=== PATIENT | male | born 1980 | race Caucasian/White ===

== ENCOUNTER 2016-10-03 22:08 | Inpatient (IN) | payer OTHER ==
[~2016-10-03] VITALS: Ht 177.8 cm; Wt 94.3 kg
[2016-10-03 22:40] LABS: MEAN CORPUSCULAR HEMOGLOBIN 31.2 pg (27.0-33.0); RED CELL DISTRIBUTION WIDTH 11.7 % (11.5-14.5); WHITE BLOOD COUNT 7.8 K/mm3 (4.0-10.0)
[2016-10-03 22:41] LABS: MEAN CORPUSCULAR HGB CONC 36.7 g/dl (32.0-36.5)
[2016-10-03 23:13] LABS: AMPHETAMINES LEVEL URINE NEGATIVE (NEGATIVE); BENZODIAZEPINES URINE NEGATIVE (NEGATIVE); COCAINE METABOLITE URINE NEGATIVE (NEGATIVE); CONTROL LINE INT CTR LINE PRESENT; METHADONE URINE NEGATIVE (NEGATIVE); OPIATES URINE NEGATIVE (NEGATIVE); TRICYCLIC ANTIDEPRESS URINE NEGATIVE (NEGATIVE)
[2016-10-03 23:17] LABS: ALBUMIN 4.1 GM/DL (3.2-5.2); ALBUMIN/GLOBULIN RATIO 1.21 (1.00-1.93); ALKALINE PHOSPHATASE 50 U/L (45-117); ALT/SGPT 38 U/L (12-78); ANION GAP 11 MEQ/L (8-16); AST/SGOT 17 U/L (15-37); BILIRUBIN,DIRECT 0.1 MG/DL (0.0-0.2); BILIRUBIN,TOTAL 0.4 MG/DL (0.2-1.0); BLOOD UREA NITROGEN 14 MG/DL (7-18); CALCIUM LEVEL 9.2 MG/DL (8.5-10.1); CARBON DIOXIDE LEVEL 24 MEQ/L (21-32); CHLORIDE LEVEL 107 MEQ/L (98-107); CREATININE FOR GFR 1.02 MG/DL (0.70-1.30); GLOMERULAR FILTRATION RATE > 60.0 (>60); GLUCOSE, FASTING 106 MG/DL (70-105); POTASSIUM SERUM 3.2 MEQ/L (3.5-5.1); SODIUM LEVEL 142 MEQ/L (136-145); TOTAL PROTEIN 7.5 GM/DL (6.4-8.2)
[2016-10-04] MEDS: LISINOPRIL 20 MG TAB PO SCH (09:00)
[2016-10-04] MEDS ORDERED: ZOMI5TAB2 PO (14:07)
[2016-10-04] MEDS ORDERED: LORA-376 PO (14:07)
[2016-10-04] MEDS ORDERED: BUPR150T3 PO (14:07)
[2016-10-04] MEDS ORDERED: GABA300C3 PO (14:07)
[2016-10-04] MEDS ORDERED: LISI-538 PO ×2 (14:07→17:30)
[2016-10-04] MEDS ORDERED: OXCA150T PO ×2 (14:07→17:33)
[2016-10-04] MEDS ORDERED: PRAZ5CAP PO (14:07)
--- NOTE | 2016-10-04 14:41 | EDDOCDS ---
Nurse's Notes [facility] Name: Ruel Estrada Age: 36 yrs Sex: Male : 1980 Arrival Date: 10/03/2016 Time: 22:08 Bed OBSERVATION Private MD: Isaac Delaney [facility] Diagnosis: Major depressive disorder, recurrent, moderate Presentation: 10/03 22:11 Presenting complaint: EMS states: pt took 4x 0.5mg of lorazepam, drank 2x 40 oz beers. [facility] pt told his he did this "to a peaceful ", therefore called EMS. pt denies SI at this time. Mental Health Triage Level: Level 2: The patient displays active suicidal ideations. Adult Sepsis Screening: The patient does not have new or worsening altered mentation. Patient's respiratory rate is less than 22. Systolic blood pressure is greater than 100. Patient has a qSOFA score of 0- Negative Sepsis Screen. Suicide/Homicide risk assessment- Patient denies SI and HI but presents with another emotional, behavioral or other mental health complaint. 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 Transition of care: patient was not received from another setting of care. 22:11 Acuity: VU Level 3 [facility] 22:11 Method Of Arrival: Ambulance [facility] Triage Assessment: 22:19 General: Appears in no apparent distress, comfortable, Behavior is cooperative. Pain: mlc Location: low back area Pain currently is 6 out of 10 on a pain scale. Pt Declines HIV testing. The patient is triaged at the bedside. See Assessment in Nurses Notes section of ED record. Neurological: Level of Consciousness is awake, obeys commands, Oriented to person, place. Respiratory: Airway is patent Respiratory effort is even, unlabored, Respiratory pattern is regular. Derm: Skin is pink, warm & dry. Historical: - Allergies: No known drug Allergies; - Home Meds: 1. lorazepam 0.5 mg Oral tab 1 tab 3 times per day pt took 2 at 18:30 and 2 at 19:30 2. prazosin 5 mg Oral cap 1 cap nightly 3. oxcarbazepine 150 mg oral tab 1 tab in moring and 1 tab at night 4. bupropion HCl 150 mg Oral TbER 1 tab once daily 5. trazodone 50 mg Oral tab nightly 6. lisinopril 20 mg Oral tab 1 tab once daily hasn't taken in a few weeks - PMHx: Hypertension; PTSD; Anxiety; Depression; - PSHx: none; - Social history: Smoking status: Patient states was never smoker of tobacco. Patient uses alcohol weekly. pt drank 2 40 oz beers tonight. No barriers to communication noted, The patient speaks fluent [place]. - Family history: Not pertinent. - : The pt / caregiver states he / she is not on anticoagulants. Home medication list is obtained from the patient. - Exposure Risk Screening:: None identified. Screenin:21 Screening information is obtained from the patient. Fall risk: At risk due to apparent mlc chemical impairment. Assistance ADL's: requires no assistance with activities of daily living. Abuse/DV Screen: The patient / caregiver reports he/she is: not in a situation that causes fear, pain or injury. Nutritional screening: No deficits noted. Advance Directives: Currently, there is no health care proxy. home support is adequate. Assessment: 22:32 General: Appears in no apparent distress, comfortable, Behavior is cooperative. Pain: mlc Denies pain. Neurological: Level of Consciousness is awake, obeys commands, Oriented to person, place. Neurological: Moves all extremities. Speech is normal, Facial symmetry appears normal, Pupils are PERRLA. Cardiovascular: Capillary refill < 3 seconds Heart tones S1 S2 present Rhythm is sinus tachycardia No ectopy. Respiratory: Airway is patent Respiratory effort is even, unlabored, Respiratory pattern is regular, Breath sounds are clear bilaterally. GI: Abdomen is non- distended Bowel sounds present X 4 quads. Abd is soft X 4 quads. Derm: Skin is normal. 23:08 Reassessment: Patient appears in no apparent distress at this time. pt resting with mlc eyes closed. . 23:35 Reassessment: Patient appears in no apparent distress at this time. pt resting mlc comfortably with eyes closed, pt awakens easily. pt moved to [facility] via wheelchair. . 10/04 00:48 General: Appears in no apparent distress, comfortable, to be sleeping. Respiratory: mlc Airway is patent Respiratory effort is even, unlabored, Respiratory pattern is regular. 01:53 Reassessment: Patient appears in no apparent distress at this time. resting quietly on rw1 stretcher, safety maintained will monitor.. 02:50 Reassessment: Patient appears in no apparent distress at this time. resting quietly on rw1 stretcher, safety maintained will monitor.. 03:52 General: Appears in no apparent distress, comfortable, Behavior is quiet, resting on rw1 stretcher with eyes closed, safety maintained. Respiratory: Airway is patent Respiratory effort is even, unlabored. Derm: Skin is pink, warm & dry. normal. 04:51 General: Appears in no apparent distress, comfortable, to be sleeping. Respiratory: mlc Airway is patent Respiratory effort is even, unlabored, Respiratory pattern is regular. 05:43 Reassessment: Patient appears in no apparent distress at this time. resting on rw1 stretcher with eyes closed, safety maintained will monitor. 06:21 General: Appears in no apparent distress, comfortable, Behavior is appropriate for age, rw1 cooperative, quiet. Pain: Denies pain. Neurological: Level of Consciousness is awake, obeys commands, Oriented to person, place, time. Respiratory: Airway is patent Respiratory effort is even, unlabored. Derm: Skin is pink, warm & dry. normal. 07:07 General: Appears in no apparent distress, Behavior is appropriate for age, cooperative. ml6 Pain: Denies pain. Neurological: No deficits noted. Level of Consciousness is awake, alert. Cardiovascular: No deficits noted. Capillary refill < 3 seconds is brisk in bilateral fingers toes. Respiratory: No deficits noted. Airway is patent Respiratory effort is even, unlabored, Respiratory pattern is regular, symmetrical. GI: No deficits noted. 07:07 General: no report received first contact with patient. ml6 08:00 Reassessment: Patient appears in no apparent distress at this time. Patient denies pain ml6 at this time. Patient states feeling better. Patient states symptoms have improved. patient sleeping intermittently after eating breakfast. 09:01 Reassessment: Patient appears in no apparent distress at this time. Patient denies pain ml6 at this time. Patient states feeling better. Patient states symptoms have improved. patient sleeping soundly resp unlabored VSS. 10:00 General: Appears in no apparent distress, comfortable, Behavior is appropriate for age, ml6 cooperative. Pain: Denies pain. Cardiovascular: No deficits noted. Respiratory: No deficits noted. 11:00 Reassessment: Patient appears in no apparent distress at this time. Patient denies pain ml6 at this time. Patient states feeling better. Patient states symptoms have improved. patient sleeping soundly resp unlabored. 12:27 General: Appears in no apparent distress, Behavior is appropriate for age, cooperative, rs3 resting on stretcher. not happy about being here and getting admitted to [facility]. cooperative with care. vital signs stable. . 13:26 General: Appears in no apparent distress, Behavior is cooperative, eating lunch. denies rs3 of pain/distress. cooperative with care. 14:35 Reassessment: Patient appears in no apparent distress at this time. Patient denies pain rs3 at this time. Patient states feeling better. Patient states symptoms have improved. Mental Health Eval: 03:54 Narrative: Spoke with PT's who states PT told her yesterday that he has stopped jfb all of his medications about 10 days ago because he is sick of taking them. states she had noticed PT becoming short tempered and blowing up over things that normally would not bother him. Yesterday PT was supposed to have a trauma director board done for their son's wrSEJENTling match but did not complete it and was complaining and he became very angry and was yelling. decided to take their three children to the wrestling match without PT and when they returned he appeared fine. After went to bed PT came into their room and was slurring his words so badly that had difficulty understanding him. He told her "I took all my pills" grabbed her phone and asked him to repeat himself telling him she would call for help and he stated "Just let me . I want to peacefully". does not feel unsafe with PT but she is concerned for his well being. 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 [facility] Behavioral Health: The patient is not an established patient of [facility] Behavioral Health. Referral Information: Evaluation referral is generated by called EMS for assistance. The patient was referred for evaluation because PT was making suicidal statements and was under the influence. 06:02 Subjective: The patients chief complaint is PT states that yesterday he and his an jfb argument with his and then he left the house to calm. When he came back gave him the silent treatment and then she left with the children. While she was gone he admitted to drinking but denied drug use. When returned PT states things were fine and he went to bed and the next thing he remembers is the police surrounding him. PT states he does not remember making statements he wanted to but he also did not deny he may have said it. PT is currently in the [facility] and is finishing his MEB which he says he is happy about. PT has minimized events and his mood swings based on 's report but admits that he discontinued his meds about 10 days ago and states he felt better but his stated she and the kids noticed a negative difference. 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 . Delusions are denied. Patient's mood is depressed, Hallucinations are denied. Mental Health history: anxiety, depression, post-traumatic stress disorder, sleep disturbance, suicide gesture by OD while drinking PT states he has no memory of event Mental Health Admissions: None. Current Outpatient Mental Health Services: Psychiatrist / Agency: Dr. Crane via [facility]. Therapist / Agency: Waldo Prather via [facility]. Current living environment is The patient currently lives with his / her significant other, and their 3 children. Patient presents to Emergency Department with the following symptoms within the past 2 weeks: alcohol abuse, depressed mood, poor impulse control, posttraumatic stress related to experiences, sleep disturbance - erratic suicidal ideation with. Substance abuse: PT states that he rarely drinks but did yesterday due to arguing with his . PT denies any drug abuse or that he smokes cigarettes . Mental status exam: Patients appearance is appropriate, Patient's behavior is cooperative, Speech is normal. Affect is flat. Mood is appropriate. Hallucinations are denied. Appetite is erratic Memory is good. Energy level is normal. Content of thought is depressive. pessimistic outlook for his future Thought process is intact. Cognitive level is oriented to person, place, time and situation Patient's insight is fair. Judgement is fair. Rapport with interviewer is good. Suicidal Ideation is denied. Homicidal ideation is denied. Disposition: Medically cleared for disposition by Stoney Marquis DO Psychiatric Consult is performed by phone with Dr Omid Leon MD. [facility] Admission Criteria: The patient is experiencing suicidal ideation. The patient requires continuous observation and/or control to protect self, others or property. The patient's care requires a multi-modal treatment plan under close supervision and coordination due to the complexity and severity of the patient's symptoms. The patient requires administration and monitoring of psychoactive medications by skilled medical providers due to the side effects of the psychoactive medications or significant dosage adjustments. [place] Safe Act: [place] Safe Act is applicable to this patient. The patient poses a risk to self or other and the Nursing Corporate Staff Accountant has been notified. He/She will enter the patient's data. DSM-V Differential Diagnosis: Posttraumatic Stress Disorder (F 43.10). Insurance Pre-Certification: Not Required, . 13:43 Legal Status: Patient's legal status will be Emergency admission: . DSM-V rb Differential Diagnosis: Unspecified Depressive Disorder (F32.9). Awaiting: transfer to [facility]. 14:01 Narrative: Pt legals placed with belongings. rb Vital Signs: 10/03 22:25 BP 157 / 86 (auto/); sep 29: Pulse 127 MON; Pulse Ox 93% ; sep 22:36 BP 140 / 78; Pulse 133; Resp 20; Temp 92(O); Pulse Ox 92% on R/A; Weight 90.72 kg (R); jmv Height 5 ft. 10 in. (177.80 cm) (R); Pain 6/10; 22:45 Pulse 123 MON; Pulse Ox 92% ; mlc 22:45 BP 109 / 50 (auto/); mlc 23:00 BP 116 / 56 (auto/); [facility] 23:01 Pulse 122 MON; Pulse Ox 92% ; [facility] 23:11 Temp 98.0(TE); [facility] 23:15 BP 142 / 75 (auto/); sep 23:16 Pulse 119 MON; Pulse Ox 91% ; sep 23:30 BP 121 / 61 (auto/); Resp 16; sep 23:31 Pulse 111 MON; Pulse Ox 96% on R/A; sep 30:32 Pulse 110 MON; mlc 10/04 06:21 BP 135 / 84; Pulse 95; Resp 18; Temp 96.9(TE); Pulse Ox 96% on R/A; Pain 0/10; rw1 12:29 BP 141 / 95; Pulse 108; Resp 18; Temp 98(O); Pulse Ox 99% on R/A; Pain 0/10; rs3 14:35 BP 140 / 92; Pulse 100; Resp 18; Temp 98(T); Pulse Ox 99% on R/A; Pain 0/10; rs3 10/03 22:36 Body Mass Index 28.70 (90.72 kg, 177.80 cm) [facility] Vitals: 10/03 22:19 Log In Time N/A - ambulance arrival. [facility] ED Course: 22:09 Patient visited by Jerrica Hinton, Teletypist. ml3 22:09 Patient moved to [facility] ml3 22:10 Isaac Delaney [facility] is Private Physician. ml3 22:10 Amy Quigley,RN is Primary Nurse. ml3 22:10 Patient moved to ml3 22:12 [facility] le 22:14 Triage Initiated mlc 22:22 The patient / caregiver is instructed regarding the plan of care and ED course. mlc 22:24 Patient visited by Danika Rothman FNP. le 22:24 Patient visited by Danika Rothman FNP. le 22:31 Acetaminophen Level Sent. mlc 22:31 Basic Metabolic Profile Sent. mlc 22:31 Complete Blood Count Sent. mlc 22:31 Ethyl Alcohol (ethanol) Sent. mlc 22:31 Liver Profile Sent. mlc 22:32 Salicylate Level Sent. mlc 22:32 Thyroid Stimulating Hormone Sent. mlc 22:32 Maintain field IV. Dressing intact. Good blood return noted. Site clean & dry. Gauge & mlc site: 18g left AC. 22:34 Patient visited by Amy Quigley RN. mlc 22:36 Drug Eval Toxicology ED Only Sent. [facility] 22:38 Patient visited by Humphrey Drummond PCA. [facility] 22:38 Pt greeted and oriented to ED. Patient advised of names of staff involved in care, [facility] location of call zayas, wait times and NPO status. Patient has correct armband on for positive identification. Placed in gown. Placed in psych safe attire. Bed in low position. Call light in reach. Side rails up X2. housekeeping supervisor on. Pulse ox on. NIBP on. 23:09 Patient visited by Amy Quigley,ELVIRA. mlc 23:37 Patient moved to [place] [id number] 23:39 [facility] Payment Agreement was scanned into [employer] and attached to record. ks16 23:44 Patient visited by Armen Simpson. tr 23:47 Patient name changed from Ruel\\S\\\\S\\Risinger\\S\\ to Ruel\\S\\ \\S\\Risinger. EDMS 23:57 Patient visited by Armen Simpson. tr 10/04 00:03 Patient visited by Amy Quigley RN. mlc 00:15 Patient moved to OBSERVATION cs11 00:34 Patient visited by Armen Simpson. tr 00:48 Patient visited by Armen Simpson. tr 00:48 Patient visited by Amy Quigley RN. mlc 01:00 Patient visited by Armen Simpson. tr 01:17 Patient visited by Armen Simpson. tr 01:30 Patient visited by Armen Simpson. tr 01:54 Patient visited by Kvng Noriega LPN. rw1 01:58 Patient visited by SimpsonArmen. tr 02:16 Patient visited by SimpsonArmen. tr 02:42 Patient visited by SimpsonArmen. tr 02:56 Patient visited by SimpsonArmen. tr 03:18 Patient visited by SimpsonArmen. tr 03:49 Patient visited by SimpsonArmen. tr 04:01 Patient visited by SimpsonArmen. tr 04:14 Patient visited by SimpsonArmen. tr 04:28 Patient visited by SimpsonArmen. tr 04:42 Patient visited by SimpsonArmen. tr 04:51 Patient visited by Amy Quigley RN. mlc 05:29 Patient visited by SimpsonArmen. tr 05:49 Patient visited by SimpsonArmen. tr 06:00 Patient visited by SimpsonArmen. tr 06:13 Patient visited by SimpsonArmen. tr 06:30 Patient visited by SimpsonArmen. tr 06:43 Patient visited by SimpsonArmen. tr 06:58 Sharri Gilliland MD is Attending Physician. sd1 07:18 Primary Nurse role handed off by Amy Quigley RN kr3 07:20 Patient visited by Neeraj Dudley Security Aide. pjf 07:34 Patient visited by Neeraj Dudley Security Aidabiodun. pjf 07:59 Patient visited by Neeraj Dudley Security Aide. pjf 08:15 Psych Safety Check: Location: Psych Room. Visual Assessment: Cooperative. pjf 08:23 Patient visited by Neeraj Dudley Security Aide. pjf 08:31 Patient visited by Ayesha Nava SYSTEM DEVELOPER ASSOCIATE MANAGER. tmm1 08:45 Psych Safety Check: Location: Psych Room. Visual Assessment: Cooperative. pjf 09:00 Psych Safety Check: Location: Psych Room. Visual Assessment: Cooperative. pjf 09:12 Patient visited by Ayesha Nava SYSTEM DEVELOPER ASSOCIATE MANAGER. tmm1 09:43 Patient visited by Ayesha Nava SYSTEM DEVELOPER ASSOCIATE MANAGER. tmm1 10:06 Patient visited by Ayesha Nava SYSTEM DEVELOPER ASSOCIATE MANAGER. tmm1 10:13 Psych Safety Check: Location: Psych Room. Visual Assessment: Agitated, pt informed that tmm1 he is an admission, pt response agitation social work is aware, Isaac Delaney Liaison [facility] and [facility] Surya informed and present. 10:15 Patient visited by Ayesha Nava PCA. tmm1 10:30 Psych Safety Check: Location: Psych Room. Visual Assessment: Cooperative. pjf 10:45 Psych Safety Check: Location: Psych Room. Visual Assessment: Cooperative. pjf 11:00 Psych Safety Check: Location: Psych Room. Visual Assessment: Cooperative. pjf 11:28 Patient visited by Ayesha Nava PCA. tmm1 11:44 Patient visited by Ayesha Nava PCA. tmm1 11:58 Patient visited by Neeraj Dudley Security Aide. pjf 12:15 Patient visited by Neeraj Dudley Security Aide. pjf 12:27 Patient visited by Giovanna Parker RN. rs3 12:30 Patient visited by Giovanna Parker RN. rs3 12:31 Patient visited by Neeraj Dudley Security Aide. pjf 12:48 Patient visited by Neeraj Dudley Security Aide. pjf 13:11 PCR was scanned into [employer] and attached to record. gb 13:24 Patient visited by Ayesha Nava PCA. tmm1 13:28 Omid Leon MD is Hospitalizing Provider. sd1 13:54 Patient visited by Ayesha Nava PCA. tmm1 13:58 [facility] Legal paperwork was scanned into [employer] and attached to record. cs 14:34 No IV's were initiated during this patient's visit. No procedures done that require rs3 assistance. Attachments: 13:58 [facility] Legal paperwork cs Order Results: Lab Order: Acetaminophen Level; SPEC'M 10/03/16 22:29 Test: ACETAMINOPHEN LEVEL; Value: < 2.0; Range: 10.0-30.0; Abnormal: Below low normal; Units: UG/ML; Status: F Lab Order: Basic Metabolic Profile; SPEC'M 10/03/16 22:29 Test: GLUCOSE, FASTING; Value: 106; Range: 70-105; Abnormal: Above high normal; Units: MG/DL; Status: F Test: BLOOD UREA NITROGEN; Value: 14; Range: 7-18; Units: MG/DL; Status: F Test: CREATININE FOR GFR; Value: 1.02; Range: 0.70-1.30; Units: MG/DL; Status: F Test: GLOMERULAR FILTRATION RATE; Value: > 60.0; Range: >60; Status: F Test: SODIUM LEVEL; Value: 142; Range: 136-145; Units: MEQ/L; Status: F Test: POTASSIUM SERUM; Value: 3.2; Range: 3.5-5.1; Abnormal: Below low normal; Units: MEQ/L; Status: F Test: CHLORIDE LEVEL; Value: 107; Range: 98-107; Units: MEQ/L; Status: F Test: CARBON DIOXIDE LEVEL; Value: 24; Range: 21-32; Units: MEQ/L; Status: F Test: ANION GAP; Value: 11; Range: 8-16; Units: MEQ/L; Status: F Test: CALCIUM LEVEL; Value: 9.2; Range: 8.5-10.1; Units: MG/DL; Status: F Test Note: ; Units are mL/min/1.73 m2 Chronic Kidney Disease Staging per NKF: Stage I & II GFR >=60 Normal to Mildly Decreased Stage III GFR 30-59 Moderately Decreased Stage IV GFR 15-29 Severely Decreased Stage V GFR <15 Very Little GFR Left ESRD GFR <15 on MAGNETO ELECTRICIAN Lab Order: Complete Blood Count; SPEC'M 10/03/16 22:29 Test: WHITE BLOOD COUNT; Value: 7.8; Range: 4.0-10.0; Units: K/mm3; Status: F Test: RED BLOOD COUNT; Value: 5.15; Range: 4.30-6.10; Units: M/mm3; Status: F Test: HEMOGLOBIN; Value: 16.1; Range: 14.0-18.0; Units: g/dl; Status: F Test: HEMATOCRIT; Value: 43.8; Range: 42.0-52.0; Units: %; Status: F Test: MEAN CORPUSCULAR VOLUME; Value: 85.0; Range: 80.0-96.0; Units: fl; Status: F Test: MEAN CORPUSCULAR HEMOGLOBIN; Value: 31.2; Range: 27.0-33.0; Units: pg; Status: F Test: MEAN CORPUSCULAR HGB CONC; Value: 36.7; Range: 32.0-36.5; Abnormal: Above high normal; Units: g/dl; Status: F Test: RED CELL DISTRIBUTION WIDTH; Value: 11.7; Range: 11.5-14.5; Units: %; Status: F Test: PLATELET COUNT, AUTOMATED; Value: 206; Range: 150-450; Units: k/mm3; Status: F Lab Order: Drug Eval Toxicology ED Only; SPEC'M 10/03/16 22:32 Test: AMPHETAMINES LEVEL URINE; Value: NEGATIVE; Range: NEGATIVE; Status: F Test: BARBITURATES URINE; Value: NEGATIVE; Range: NEGATIVE; Status: F Test: BENZODIAZEPINES URINE; Value: NEGATIVE; Range: NEGATIVE; Status: F Test: CANNABINOIDS URINE; Value: NEGATIVE; Range: NEGATIVE; Status: F Test: COCAINE METABOLITE URINE; Value: NEGATIVE; Range: NEGATIVE; Status: F Test: METHADONE URINE; Value: NEGATIVE; Range: NEGATIVE; Status: F Test: OPIATES URINE; Value: NEGATIVE; Range: NEGATIVE; Status: F Test: TRICYCLIC ANTIDEPRESS URINE; Value: NEGATIVE; Range: NEGATIVE; Status: F Test Note: ; ALL PRESUMPTIVE POSITIVE FINDINGS ARE UNCONFIRMED NORMAL VALUES THRESHOLD IN NG/ML AMPHETAMINES 1000 METHAMPHETAMINES 1000 BARBITURATES 300 BENZODIAZEPINES 300 CANNABINOIDS (THC) 50 COCAINE METABOLITE 300 METHADONE 300 OPIATES 300 PHENCYCLIDINE 25 TRICYCLIC ANTIDEPRESSANTS 1000 RESULTS ARE FOR MEDICAL PURPOSES ONLY. ALL URINE SPECIMENS WILL BE SAVED FOR 3 DAYS. IF CONFIRMATION OF A PRESUMPTIVE POSTIVE SCREEN RESULT IS DESIRED, CALL CHEMISTRY ([phone]) AND REQUEST URINE TO BE SENT TO REFERENCE LAB. FOR A LIST OF CLOSELY RELATED COMPOUNDS PLEASE CALL THE LAB. Lab Order: Ethyl Alcohol (ethanol); SPEC'M 10/03/16 22:29 Test: ETHYL ALCOHOL (ETHANOL); Value: 0.098; Range: 0.000-0.010; Abnormal: Above high normal; Units: %; Status: F Lab Order: Liver Profile; SPEC'M 10/03/16 22:29 Test: AST/SGOT; Value: 17; Range: 15-37; Units: U/L; Status: F Test: ALT/SGPT; Value: 38; Range: 12-78; Units: U/L; Status: F Test: ALKALINE PHOSPHATASE; Value: 50; Range: 45-117; Units: U/L; Status: F Test: BILIRUBIN,TOTAL; Value: 0.4; Range: 0.2-1.0; Units: MG/DL; Status: F Test: BILIRUBIN,DIRECT; Value: 0.1; Range: 0.0-0.2; Units: MG/DL; Status: F Test: TOTAL PROTEIN; Value: 7.5; Range: 6.4-8.2; Units: GM/DL; Status: F Test: ALBUMIN; Value: 4.1; Range: 3.2-5.2; Units: GM/DL; Status: F Test: ALBUMIN/GLOBULIN RATIO; Value: 1.21; Range: 1.00-1.93; Status: F Lab Order: Salicylate Level; SPEC'M 10/03/16 22:29 Test: SALICYLATE LEVEL; Value: < 1.7; Range: 5.0-30.0; Abnormal: Below low normal; Units: MG/DL; Status: F Lab Order: Thyroid Stimulating Hormone; SPEC'M 10/03/16 22:29 Test: THYROID STIMULATING HORMONE; Value: 5.330; Range: 0.358-3.740; Abnormal: Above high normal; Units: uIU/ML; Status: F Outcome: 13:28 Decision to Hospitalize by Provider. sd1 14:35 Discharge Assessment: patient administered narcotics - no. The following High Risk rs3 Discharge criteria are identified: None. Admitted to Psych accompanied by tech, via wheelchair, with chart. Condition: stable. No special radiology studies were completed. Property :Personal belongings accompany Pt. 14:40 Patient left the ED. tmm1 Signatures: Dispatcher [employer] EDMS Sharri Gilliland MD MD sd1 Megan Coronado, RN RN catrina Palencia, yLric, PSA PSA rb Jericho Alanis, PSA PSA cs Florecita Appiah, Reg Reg gb Octavia, Neeraj, Security Aide [facility]ff[facility] Simpson, Armen tr Jamaal, [facility] CampusErmelinda, Teletypist Unit ml3 Thao Camacho,RN RN kr3 Kvng Noriega,BROOMCORN GRADER BROOMCORN GRADER rw1 Danika Rothman, DETECTIVE SUPERVISOR DETECTIVE SUPERVISOR dexter Parker,GiovannaRN RN rs3 Deondre Mckeon RN RN ml6 Lorrie Hogan, PSA PSA jfb Stoney Marquis, DO DO cs11 Elijah, Ayesha, SYSTEM DEVELOPER ASSOCIATE MANAGER SYSTEM DEVELOPER ASSOCIATE MANAGER tmm1 Amy Quigley,Devi Barrett RN, Reg Reg ks16 Humprhey Drummond, SYSTEM DEVELOPER ASSOCIATE MANAGER SYSTEM DEVELOPER ASSOCIATE MANAGER jmv MTDD
--- NOTE | 2016-10-04 14:41 | EDDOCDS ---
Physician Documentation [facility] Name: Ruel Estrada Age: 36 yrs Sex: Male : 1980 Arrival Date: 10/03/2016 Time: 22:08 Bed OBSERVATION Private MD: Isaac Delaney [facility] Disposition: 10/04/16 13:28 Hospitalization ordered by Omid Leon for Inpatient Admission. Preliminary diagnosis is Major depressive disorder, recurrent, moderate. - Bed requested for Admit. - Status is Inpatient Admission. tmm1 - Condition is Stable. - Problem is an acute exacerbation. - Symptoms are unchanged. Historical: - Allergies: No known drug Allergies; - Home Meds: 1. lorazepam 0.5 mg Oral tab 1 tab 3 times per day pt took 2 at 18:30 and 2 at 19:30 2. prazosin 5 mg Oral cap 1 cap nightly 3. oxcarbazepine 150 mg oral tab 1 tab in moring and 1 tab at night 4. bupropion HCl 150 mg Oral TbER 1 tab once daily 5. trazodone 50 mg Oral tab nightly 6. lisinopril 20 mg Oral tab 1 tab once daily hasn't taken in a few weeks - PMHx: Hypertension; PTSD; Anxiety; Depression; - PSHx: none; - Social history: Smoking status: Patient states was never smoker of tobacco. Patient uses alcohol weekly. pt drank 2 40 oz beers tonight. No barriers to communication noted, The patient speaks fluent Kenyan. - Family history: Not pertinent. - : The pt / caregiver states he / she is not on anticoagulants. Home medication list is obtained from the patient. - Exposure Risk Screening:: None identified. Vital Signs: 10/03 22:25 BP 157 / 86 (auto/); sep 29: Pulse 127 MON; Pulse Ox 93% ; sep 22:36 BP 140 / 78; Pulse 133; Resp 20; Temp 92(O); Pulse Ox 92% on R/A; Weight 90.72 kg / 200 jmv lbs (R); Height 5 ft. 10 in. (177.80 cm) (R); Pain 6/10; 22:45 Pulse 123 MON; Pulse Ox 92% ; mlc 22:45 BP 109 / 50 (auto/); mlc 23:00 BP 116 / 56 (auto/); mlc 23:01 Pulse 122 MON; Pulse Ox 92% ; mlc 23:11 Temp 98.0(TE); 23:15 BP 142 / 75 (auto/); sep 23:16 Pulse 119 MON; Pulse Ox 91% ; sep 23:30 BP 121 / 61 (auto/); Resp 16; sep 23:31 Pulse 111 MON; Pulse Ox 96% on R/A; sep 23:32 Pulse 110 MON; mlc 10/04 06:21 BP 135 / 84; Pulse 95; Resp 18; Temp 96.9(TE); Pulse Ox 96% on R/A; Pain 0/10; rw1 12:29 BP 141 / 95; Pulse 108; Resp 18; Temp 98(O); Pulse Ox 99% on R/A; Pain 0/10; rs3 14:35 BP 140 / 92; Pulse 100; Resp 18; Temp 98(T); Pulse Ox 99% on R/A; Pain 0/10; rs3 10/03 22:36 Body Mass Index 28.70 (90.72 kg, 177.80 cm) julissa MDM: 10/03 22:13 Consult PFS/PSA/Last Greaser ordered. le 22:13 Consult PFS/PSA/Last Greaser: Patient's case requires discussion with on-call le Psychiatrist ordered. 22:13 PSA/PFS to call Nursing Toy Assembler, to enter patient data on [place] Safe Act if patient le involuntarily admitted or transferred for SI or HI ordered. 22:13 Confirm accurate psychiatric medication list and times of last dosage ordered. le 22:13 Detain Pt Until Medically/PFS Cleared ordered. le 22:16 Acetaminophen Level Ordered. EDMS 22:16 Basic Metabolic Profile Ordered. EDMS 22:16 Complete Blood Count Ordered. EDMS 22:16 Drug Eval Toxicology ED Only Ordered. EDMS 22:16 Ethyl Alcohol (ethanol) Ordered. EDMS 22:16 Liver Profile Ordered. EDMS 22:16 Salicylate Level Ordered. EDMS 22:16 Thyroid Stimulating Hormone Ordered. EDMS 23:21 Drug Eval Toxicology ED Only Reviewed. le 23:21 Complete Blood Count Reviewed. le 23:25 Ethyl Alcohol (ethanol) Reviewed. le 23:26 Acetaminophen Level Reviewed. le 23:26 Basic Metabolic Profile Reviewed. le 23:26 Salicylate Level Reviewed. le 23:26 Thyroid Stimulating Hormone Reviewed. le 23:26 Liver Profile Reviewed. le 23:35 The patient has been medically cleared for psychiatric evaluation, admission and/or le transfer. 23:38 Financial registration complete. [email or web address] 23:39 [facility] Payment Agreement was scanned into [employer] and attached to record. [email or web address] 10/04 03:53 REGULAR DIET PLASTIC GIBBONS+DIET ordered. EDMS 05:55 Consult PFS/PSA/Last Greaser complete. jfb 05:55 Consult PFS/PSA/Last Greaser: Patient's case requires discussion with on-call jfb Psychiatrist complete. 05:55 PSA/PFS to call Nursing Toy Assembler, to enter patient data on [facility] Safe Act if patient jfb involuntarily admitted or transferred for SI or HI complete. 11:30 REGULAR DIET PLASTIC GIBBONS+DIET ordered. EDMS 13:11 PCR was scanned into [employer] and attached to record. gb 13:38 Admit to IM[facility]: ordered. EDMS 13:58 [facility] Legal paperwork was scanned into [employer] and attached to record. cs Signatures: Dispatcher [employer] EDMS Sharri Gilliland MD MD sd1 Jericho Alanis, PSA PSA cs Florecita Appiah, Reg Reg gb Danika Rothman, INTERNET MARKETING EXECUTIVE INTERNET MARKETING EXECUTIVE Lorrie Rosen, PSA PSA jfb Elijah, Ayesha, ELECTRICAL LINE WORKER ELECTRICAL LINE WORKER tmm1 Amy Quigley,RN RN Devi Gee, Reg Reg [email or web address] The chart was reviewed and I authenticate all verbal orders and agree with the evaluation and treatment provided.Attachments: 10/03 23:39 [facility] Payment Agreement [email or web address] MTDD
[2016-10-04] MEDS ORDERED: MOM 30ML SUSPENSION UDC PO PRN (17:00)
[2016-10-04] MEDS ORDERED: MAALOX 30 ML SUSP *UDC PO PRN (17:00)
[2016-10-04] MEDS ORDERED: WELLTAB38 PO (17:30)
[2016-10-04] MEDS: traZODone 100 MG TAB PO PRN (20:07)
[2016-10-04] MEDS: buPROPion **XL** TABLET 150MG (WELLBUTRIN XL) PO SCH (20:07)
[2016-10-04] MEDS: LORazepam 0.5 MG TAB PO SCH (20:07)
[2016-10-04] MEDS: PRAZOSIN 1 MG CAP PO SCH (20:07)
[2016-10-04] MEDS: OXcarbazepine 150 MG TAB PO SCH (20:07)
[2016-10-04 20:18] VITALS: BP 145/95
[2016-10-05 06:28] VITALS: BP 139/65
[2016-10-05] MEDS: OXcarbazepine 150 MG TAB PO SCH ×2 (09:54→20:19)
[2016-10-05] MEDS: LISINOPRIL 20 MG TAB PO SCH (09:54)
[2016-10-05] MEDS: LORazepam 0.5 MG TAB PO SCH ×2 (09:54→20:19)
[2016-10-05] MEDS: buPROPion **XL** TABLET 150MG (WELLBUTRIN XL) PO SCH (09:54)
[2016-10-05 11:27] VITALS: BP 132/90
[2016-10-05 18:04] VITALS: BP 120/72
[2016-10-05] MEDS: traZODone 100 MG TAB PO PRN (20:19)
[2016-10-05] MEDS: PRAZOSIN 1 MG CAP PO SCH (20:20)
[2016-10-06 06:11] VITALS: BP 111/55
[2016-10-06] MEDS: LISINOPRIL 20 MG TAB PO SCH (08:34)
[2016-10-06] MEDS: OXcarbazepine 150 MG TAB PO SCH (08:34)
[2016-10-06] MEDS: buPROPion **XL** TABLET 150MG (WELLBUTRIN XL) PO SCH (08:34)
[2016-10-06] MEDS: LORazepam 0.5 MG TAB PO SCH ×2 (08:34→20:06)
--- NOTE | 2016-10-06 15:41 | EDDOCDS ---
Nurse's Notes [facility] Name: Ruel Estrada Age: 36 yrs Sex: Male : 1980 Arrival Date: 10/03/2016 Time: 22:08 Bed OBSERVATION Private MD: Isaac Delaney [facility] Diagnosis: Major depressive disorder, recurrent, moderate Presentation: 10/03 22:11 Presenting complaint: EMS states: pt took 4x 0.5mg of lorazepam, drank 2x 40 oz beers. [facility] [place] told his he did this "to a peaceful ", therefore called EMS. pt denies SI at this time. Mental Health Triage Level: Level 2: The patient displays active suicidal ideations. Adult Sepsis Screening: The patient does not have new or worsening altered mentation. Patient's respiratory rate is less than 22. Systolic blood pressure is greater than 100. Patient has a qSOFA score of 0- Negative Sepsis Screen. Suicide/Homicide risk assessment- Patient denies SI and HI but presents with another emotional, behavioral or other mental health complaint. 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 Transition of care: patient was not received from another setting of care. 22:11 Acuity: VU Level 3 [facility] 22:11 Method Of Arrival: Amb[place] [facility] Triage Assessment: 22:19 General: Appears in no apparent distress, comfortable, Behavior is cooperative. Pain: mlc Location: low back area Pain currently is 6 out of 10 on a pain scale. Pt Declines HIV testing. The patient is triaged at the bedside. See Assessment in Nurses Notes section of ED record. Neurological: Level of Consciousness is awake, obeys commands, Oriented to person, place. Respiratory: Airway is patent Respiratory effort is even, unlabored, Respiratory pattern is regular. Derm: Skin is pink, warm & dry. Historical: - Allergies: No known drug Allergies; - Home Meds: 1. lorazepam 0.5 mg Oral tab 1 tab 3 times per day pt took 2 at 18:30 and 2 at 19:30 2. prazosin 5 mg Oral cap 1 cap nightly 3. oxcarbazepine 150 mg oral tab 1 tab in moring and 1 tab at night 4. bupropion HCl 150 mg Oral TbER 1 tab once daily 5. trazodone 50 mg Oral tab nightly 6. lisinopril 20 mg Oral tab 1 tab once daily hasn't taken in a few weeks - PMHx: Hypertension; PTSD; Anxiety; Depression; - PSHx: none; - Social history: Smoking status: Patient states was never smoker of tobacco. Patient uses alcohol weekly. pt drank 2 40 oz beers tonight. No barriers to communication noted, The patient speaks fluent Mexican. - Family history: Not pertinent. - : The pt / caregiver states he / she is not on anticoagulants. Home medication list is obtained from the patient. - Exposure Risk Screening:: None identified. Screenin:21 Screening information is obtained from the patient. Fall risk: At risk due to apparent mlc chemical impairment. Assistance ADL's: requires no assistance with activities of daily living. Abuse/DV Screen: The patient / caregiver reports he/she is: not in a situation that causes fear, pain or injury. Nutritional screening: No deficits noted. Advance Directives: Currently, there is no health care proxy. home support is adequate. Assessment: 22:32 General: Appears in no apparent distress, comfortable, Behavior is cooperative. Pain: mlc Denies pain. Neurological: Level of Consciousness is awake, obeys commands, Oriented to person, place. Neurological: Moves all extremities. Speech is normal, Facial symmetry appears normal, Pupils are PERRLA. Cardiovascular: Capillary refill < 3 seconds Heart tones S1 S2 present Rhythm is sinus tachycardia No ectopy. Respiratory: Airway is patent Respiratory effort is even, unlabored, Respiratory pattern is regular, Breath sounds are clear bilaterally. GI: Abdomen is non- distended Bowel sounds present X 4 quads. Abd is soft X 4 quads. Derm: Skin is normal. 23:08 Reassessment: Patient appears in no apparent distress at this time. pt resting with mlc eyes closed. . 23:35 Reassessment: Patient appears in no apparent distress at this time. pt resting mlc comfortably with eyes closed, pt awakens easily. pt moved to [facility] via wheelchair. . 10/04 00:48 General: Appears in no apparent distress, comfortable, to be sleeping. Respiratory: mlc Airway is patent Respiratory effort is even, unlabored, Respiratory pattern is regular. 01:53 Reassessment: Patient appears in no apparent distress at this time. resting quietly on rw1 stretcher, safety maintained will monitor.. 02:50 Reassessment: Patient appears in no apparent distress at this time. resting quietly on rw1 stretcher, safety maintained will monitor.. 03:52 General: Appears in no apparent distress, comfortable, Behavior is quiet, resting on rw1 stretcher with eyes closed, safety maintained. Respiratory: Airway is patent Respiratory effort is even, unlabored. Derm: Skin is pink, warm & dry. normal. 04:51 General: Appears in no apparent distress, comfortable, to be sleeping. Respiratory: mlc Airway is patent Respiratory effort is even, unlabored, Respiratory pattern is regular. 05:43 Reassessment: Patient appears in no apparent distress at this time. resting on rw1 stretcher with eyes closed, safety maintained will monitor. 06:21 General: Appears in no apparent distress, comfortable, Behavior is appropriate for age, rw1 cooperative, quiet. Pain: Denies pain. Neurological: Level of Consciousness is awake, obeys commands, Oriented to person, place, time. Respiratory: Airway is patent Respiratory effort is even, unlabored. Derm: Skin is pink, warm & dry. normal. 07:07 General: Appears in no apparent distress, Behavior is appropriate for age, cooperative. ml6 Pain: Denies pain. Neurological: No deficits noted. Level of Consciousness is awake, alert. Cardiovascular: No deficits noted. Capillary refill < 3 seconds is brisk in bilateral fingers toes. Respiratory: No deficits noted. Airway is patent Respiratory effort is even, unlabored, Respiratory pattern is regular, symmetrical. GI: No deficits noted. 07:07 General: no report received first contact with patient. ml6 08:00 Reassessment: Patient appears in no apparent distress at this time. Patient denies pain ml6 at this time. Patient states feeling better. Patient states symptoms have improved. patient sleeping intermittently after eating breakfast. 09:01 Reassessment: Patient appears in no apparent distress at this time. Patient denies pain ml6 at this time. Patient states feeling better. Patient states symptoms have improved. patient sleeping soundly resp unlabored VSS. 10:00 General: Appears in no apparent distress, comfortable, Behavior is appropriate for age, ml6 cooperative. Pain: Denies pain. Cardiovascular: No deficits noted. Respiratory: No deficits noted. 11:00 Reassessment: Patient appears in no apparent distress at this time. Patient denies pain ml6 at this time. Patient states feeling better. Patient states symptoms have improved. patient sleeping soundly resp unlabored. 12:27 General: Appears in no apparent distress, Behavior is appropriate for age, cooperative, rs3 resting on stretcher. not happy about being here and getting admitted to [facility]. cooperative with care. vital signs stable. . 13:26 General: Appears in no apparent distress, Behavior is cooperative, eating lunch. denies rs3 of pain/distress. cooperative with care. 14:35 Reassessment: Patient appears in no apparent distress at this time. Patient denies pain rs3 at this time. Patient states feeling better. Patient states symptoms have improved. Mental Health Eval: 03:54 Narrative: Spoke with PT's who states PT told her yesterday that he has stopped jfb all of his medications about 10 days ago because he is sick of taking them. states she had noticed PT becoming short tempered and blowing up over things that normally would not bother him. 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 decided to take their three children to the wrestling match without PT and when they returned he appeared fine. After went to bed PT came into their room and was slurring his words so badly that had difficulty understanding him. He told her "I took all my pills" grabbed her phone and asked him to repeat himself telling him she would call for help and he stated "Just let me . I want to peacefully". does not feel unsafe with PT but she is concerned for his well being. 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 [facility] Behavioral Health: The patient is not an established patient of [facility] Behavioral Health. Referral Information: Evaluation referral is generated by called EMS for assistance. The patient was referred for evaluation because PT was making suicidal statements and was under the influence. 06:02 Subjective: The patients chief complaint is PT states that yesterday he and his an jfb argument with his and then he left the house to calm. When he came back gave him the silent treatment and then she left with the children. While she was gone he admitted to drinking but denied drug use. When returned PT states things were fine and he went to bed and the next thing he remembers is the police surrounding him. PT states he does not remember making statements he wanted to but he also did not deny he may have said it. PT is currently in the [facility] and is finishing his MEB which he says he is happy about. PT has minimized events and his mood swings based on 's report but admits that he discontinued his meds about 10 days ago and states he felt better but his stated she and the kids noticed a negative difference. 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 . Delusions are denied. Patient's mood is depressed, Hallucinations are denied. Mental Health history: anxiety, depression, post-traumatic stress disorder, sleep disturbance, suicide gesture by OD while drinking PT states he has no memory of event Mental Health Admissions: None. Current Outpatient Mental Health Services: Psychiatrist / Agency: Dr. Crane via [facility]. Therapist / Agency: Waldo Prather via [facility]. Current living environment is The patient currently lives with his / her significant other, and their 3 children. Patient presents to Emergency Department with the following symptoms within the past 2 weeks: alcohol abuse, depressed mood, poor impulse control, posttraumatic stress related to experiences, sleep disturbance - erratic suicidal ideation with. Substance abuse: PT states that he rarely drinks but did yesterday due to arguing with his . PT denies any drug abuse or that he smokes cigarettes . Mental status exam: Patients appearance is appropriate, Patient's behavior is cooperative, Speech is normal. Affect is flat. Mood is appropriate. Hallucinations are denied. Appetite is erratic Memory is good. Energy level is normal. Content of thought is depressive. pessimistic outlook for his future Thought process is intact. Cognitive level is oriented to person, place, time and situation Patient's insight is fair. Judgement is fair. Rapport with interviewer is good. Suicidal Ideation is denied. Homicidal ideation is denied. Disposition: Medically cleared for disposition by Stoney Marquis DO Psychiatric Consult is performed by phone with Dr Omid Leon MD. [facility] Admission Criteria: The patient is experiencing suicidal ideation. The patient requires continuous observation and/or control to protect self, others or property. The patient's care requires a multi-modal treatment plan under close supervision and coordination due to the complexity and severity of the patient's symptoms. The patient requires administration and monitoring of psychoactive medications by skilled medical providers due to the side effects of the psychoactive medications or significant dosage adjustments. [place] Safe [place] Safe Act is applicable to this patient. The patient poses a risk to self or other and the Nursing Reel Cutter has been notified. He/She will enter the patient's data. DSM-V Differential Diagnosis: Posttraumatic Stress Disorder (F 43.10). Insurance Pre-Certification: Not Required, . 13:43 Legal Status: Patient's legal status will be Emergency admission: . DSM-V rb Differential Diagnosis: Unspecified Depressive Disorder (F32.9). Awaiting: transfer to [facility]. 14:01 Narrative: Pt legals placed with belongings. rb Vital Signs: 10/03 22:25 BP 157 / 86 (auto/); sep 29: Pulse 127 MON; Pulse Ox 93% ; sep 22:36 BP 140 / 78; Pulse 133; Resp 20; Temp 92(O); Pulse Ox 92% on R/A; Weight 90.72 kg (R); jmv Height 5 ft. 10 in. (177.80 cm) (R); Pain 6/10; 22:45 Pulse 123 MON; Pulse Ox 92% ; mlc 22:45 BP 109 / 50 (auto/); mlc 23:00 BP 116 / 56 (auto/); [facility] 23:01 Pulse 122 MON; Pulse Ox 92% ; [facility] 23:11 Temp 98.0(TE); [facility] 23:15 BP 142 / 75 (auto/); sep 23:16 Pulse 119 MON; Pulse Ox 91% ; sep 23:30 BP 121 / 61 (auto/); Resp 16; sep 23:31 Pulse 111 MON; Pulse Ox 96% on R/A; sep 30:32 Pulse 110 MON; mlc 10/04 06:21 BP 135 / 84; Pulse 95; Resp 18; Temp 96.9(TE); Pulse Ox 96% on R/A; Pain 0/10; rw1 12:29 BP 141 / 95; Pulse 108; Resp 18; Temp 98(O); Pulse Ox 99% on R/A; Pain 0/10; rs3 14:35 BP 140 / 92; Pulse 100; Resp 18; Temp 98(T); Pulse Ox 99% on R/A; Pain 0/10; rs3 10/03 22:36 Body Mass Index 28.70 (90.72 kg, 177.80 cm) [facility] Vitals: 10/03 22:19 Log In Time N/A - ambulance arrival. [facility] ED Course: 22:09 Patient visited by Jerrica Hinton, Stock Taker. ml3 22:09 Patient moved to [facility] ml3 22:10 Isaac Delaney [facility] is Private Physician. ml3 22:10 Amy Quigley,RN is Primary Nurse. ml3 22:10 Patient moved to ml3 22:12 [facility] Rothman FNP [facility] le 22:14 Triage Initiated mlc 22:22 The patient / caregiver is instructed regarding the plan of care and ED course. mlc 22:24 Patient visited by Danika Rothman FNP. le 22:24 Patient visited by Danika Rothman FNP. le 22:31 Acetaminophen Level Sent. mlc 22:31 Basic Metabolic Profile Sent. mlc 22:31 Complete Blood Count Sent. mlc 22:31 Ethyl Alcohol (ethanol) Sent. mlc 22:31 Liver Profile Sent. mlc 22:32 Salicylate Level Sent. mlc 22:32 Thyroid Stimulating Hormone Sent. mlc 22:32 Maintain field IV. Dressing intact. Good blood return noted. Site clean & dry. Gauge & mlc site: 18g left AC. 22:34 Patient visited by Amy Quigley RN. mlc 22:36 Drug Eval Toxicology ED Only Sent. [facility] 22:38 Patient visited by Humphrey Drummond PCA. [facility] 22:38 Pt greeted and oriented to ED. Patient advised of names of staff involved in care, [facility] location of call zayas, wait times and NPO status. Patient has correct armband on for positive identification. Placed in gown. Placed in psych safe attire. Bed in low position. Call light in reach. Side rails up X2. phototypesetting equipment monitor on. Pulse ox on. NIBP on. 23:09 Patient visited by Amy Quigley,ELVIRA. mlc 23:37 Patient moved to [place] [id number] 23:39 [facility] Payment Agreement was scanned into RealSelf and attached to record. ks16 23:44 Patient visited by Armen Simpson. tr 23:47 Patient name changed from Ruel\\S\\\\S\\Risinger\\S\\ to Ruel\\S\\ \\S\\Risinger. EDMS 23:57 Patient visited by Armen Simpson. tr 10/04 00:03 Patient visited by Amy Quigley RN. mlc 00:15 Patient moved to OBSERVATION cs11 00:34 Patient visited by Armen Simpson. tr 00:48 Patient visited by Armen Simpson. tr 00:48 Patient visited by Amy Quigley RN. mlc 01:00 Patient visited by Armen Simpson. tr 01:17 Patient visited by Armen Simpson. tr 01:30 Patient visited by Armen Simpson. tr 01:54 Patient visited by Kvng Noriega LPN. rw1 01:58 Patient visited by SimpsonArmen. tr 02:16 Patient visited by SimpsonArmen. tr 02:42 Patient visited by SimpsonArmen. tr 02:56 Patient visited by SimpsonArmen. tr 03:18 Patient visited by SimpsonArmen. tr 03:49 Patient visited by SimpsonArmen. tr 04:01 Patient visited by SimpsonArmen. tr 04:14 Patient visited by SimpsonArmen. tr 04:28 Patient visited by SimpsonArmen. tr 04:42 Patient visited by SimpsonArmen. tr 04:51 Patient visited by Amy Quigley RN. mlc 05:29 Patient visited by SimpsonArmen. tr 05:49 Patient visited by SimpsonArmen. tr 06:00 Patient visited by SimpsonArmen. tr 06:13 Patient visited by SimpsonArmen. tr 06:30 Patient visited by SimpsonArmen. tr 06:43 Patient visited by SimpsonAmren. tr 06:58 Sharri Gilliland MD is Attending Physician. sd1 07:18 Primary Nurse role handed off by Amy Quigley RN kr3 07:20 Patient visited by Neeraj Dudley Security Aide. pjf 07:34 Patient visited by Neeraj Dudley Security Aidabiodun. pjf 07:59 Patient visited by Neeraj Dudley Security Aide. pjf 08:15 Psych Safety Check: Location: Psych Room. Visual Assessment: Cooperative. pjf 08:23 Patient visited by Neeraj Dudley Security Aide. pjf 08:31 Patient visited by Ayesha Nava CHIEF VENDOR QUALITY. tmm1 08:45 Psych Safety Check: Location: Psych Room. Visual Assessment: Cooperative. pjf 09:00 Psych Safety Check: Location: Psych Room. Visual Assessment: Cooperative. pjf 09:12 Patient visited by Ayesha Nava CHIEF VENDOR QUALITY. tmm1 09:43 Patient visited by Ayesha Nava CHIEF VENDOR QUALITY. tmm1 10:06 Patient visited by Ayesha Nava CHIEF VENDOR QUALITY. tmm1 10:13 Psych Safety Check: Location: Psych Room. Visual Assessment: Agitated, pt informed that tmm1 he is an admission, pt response agitation social work is aware, Isaac Delaney Liaison [facility] and [facility] Surya informed and present. 10:15 Patient visited by Ayesha Nava PCA. tmm1 10:30 Psych Safety Check: Location: Psych Room. Visual Assessment: Cooperative. pjf 10:45 Psych Safety Check: Location: Psych Room. Visual Assessment: Cooperative. pjf 11:00 Psych Safety Check: Location: Psych Room. Visual Assessment: Cooperative. pjf 11:28 Patient visited by Ayesha Nava PCA. tmm1 11:44 Patient visited by Ayesha Nava PCA. tmm1 11:58 Patient visited by Neeraj Dudley Security Aide. pjf 12:15 Patient visited by Neeraj Dudley Security Aide. pjf 12:27 Patient visited by Giovanna Parker RN. rs3 12:30 Patient visited by Giovanna Parker RN. rs3 12:31 Patient visited by Neeraj Dudley Security Aide. pjf 12:48 Patient visited by Neeraj Dudley Security Aide. pjf 13:11 PCR was scanned into RealSelf and attached to record. gb 13:24 Patient visited by Ayesha Nava PCA. tmm1 13:28 Omid Leon MD is Hospitalizing Provider. sd1 13:54 Patient visited by Ayesha Nava PCA. tmm1 13:58 [facility] Legal paperwork was scanned into RealSelf and attached to record. cs 14:34 No IV's were initiated during this patient's visit. No procedures done that require rs3 assistance. 10/05 09:13 T-Sheet-- Draft Copy was scanned into RealSelf and attached to record. [facility] Attachments: 13:58 E Legal paperwork cs Order Results: Lab Order: Acetaminophen Level; SPEC'M 10/03/16 22:29 Test: ACETAMINOPHEN LEVEL; Value: < 2.0; Range: 10.0-30.0; Abnormal: Below low normal; Units: UG/ML; Status: F Lab Order: Basic Metabolic Profile; SPEC'M 10/03/16 22:29 Test: GLUCOSE, FASTING; Value: 106; Range: 70-105; Abnormal: Above high normal; Units: MG/DL; Status: F Test: BLOOD UREA NITROGEN; Value: 14; Range: 7-18; Units: MG/DL; Status: F Test: CREATININE FOR GFR; Value: 1.02; Range: 0.70-1.30; Units: MG/DL; Status: F Test: GLOMERULAR FILTRATION RATE; Value: > 60.0; Range: >60; Status: F Test: SODIUM LEVEL; Value: 142; Range: 136-145; Units: MEQ/L; Status: F Test: POTASSIUM SERUM; Value: 3.2; Range: 3.5-5.1; Abnormal: Below low normal; Units: MEQ/L; Status: F Test: CHLORIDE LEVEL; Value: 107; Range: 98-107; Units: MEQ/L; Status: F Test: CARBON DIOXIDE LEVEL; Value: 24; Range: 21-32; Units: MEQ/L; Status: F Test: ANION GAP; Value: 11; Range: 8-16; Units: MEQ/L; Status: F Test: CALCIUM LEVEL; Value: 9.2; Range: 8.5-10.1; Units: MG/DL; Status: F Test Note: ; Units are mL/min/1.73 m2 Chronic Kidney Disease Staging per NKF: Stage I & II GFR >=60 Normal to Mildly Decreased Stage III GFR 30-59 Moderately Decreased Stage IV GFR 15-29 Severely Decreased Stage V GFR <15 Very Little GFR Left ESRD GFR <15 on INDUSTRI[employer]ORER Lab Order: Complete Blood Count; SPEC'M 10/03/16 22:29 Test: WHITE BLOOD COUNT; Value: 7.8; Range: 4.0-10.0; Units: K/mm3; Status: F Test: RED BLOOD COUNT; Value: 5.15; Range: 4.30-6.10; Units: M/mm3; Status: F Test: HEMOGLOBIN; Value: 16.1; Range: 14.0-18.0; Units: g/dl; Status: F Test: HEMATOCRIT; Value: 43.8; Range: 42.0-52.0; Units: %; Status: F Test: MEAN CORPUSCULAR VOLUME; Value: 85.0; Range: 80.0-96.0; Units: fl; Status: F Test: MEAN CORPUSCULAR HEMOGLOBIN; Value: 31.2; Range: 27.0-33.0; Units: pg; Status: F Test: MEAN CORPUSCULAR HGB CONC; Value: 36.7; Range: 32.0-36.5; Abnormal: Above high normal; Units: g/dl; Status: F Test: RED CELL DISTRIBUTION WIDTH; Value: 11.7; Range: 11.5-14.5; Units: %; Status: F Test: PLATELET COUNT, AUTOMATED; Value: 206; Range: 150-450; Units: k/mm3; Status: F Lab Order: Drug Eval Toxicology ED Only; SPEC'M 10/03/16 22:32 Test: AMPHETAMINES LEVEL URINE; Value: NEGATIVE; Range: NEGATIVE; Status: F Test: BARBITURATES URINE; Value: NEGATIVE; Range: NEGATIVE; Status: F Test: BENZODIAZEPINES URINE; Value: NEGATIVE; Range: NEGATIVE; Status: F Test: CANNABINOIDS URINE; Value: NEGATIVE; Range: NEGATIVE; Status: F Test: COCAINE METABOLITE URINE; Value: NEGATIVE; Range: NEGATIVE; Status: F Test: METHADONE URINE; Value: NEGATIVE; Range: NEGATIVE; Status: F Test: OPIATES URINE; Value: NEGATIVE; Range: NEGATIVE; Status: F Test: TRICYCLIC ANTIDEPRESS URINE; Value: NEGATIVE; Range: NEGATIVE; Status: F Test Note: ; ALL PRESUMPTIVE POSITIVE FINDINGS ARE UNCONFIRMED NORMAL VALUES THRESHOLD IN NG/ML AMPHETAMINES 1000 METHAMPHETAMINES 1000 BARBITURATES 300 BENZODIAZEPINES 300 CANNABINOIDS (THC) 50 COCAINE METABOLITE 300 METHADONE 300 OPIATES 300 PHENCYCLIDINE 25 TRICYCLIC ANTIDEPRESSANTS 1000 RESULTS ARE FOR MEDICAL PURPOSES ONLY. ALL URINE SPECIMENS WILL BE SAVED FOR 3 DAYS. IF CONFIRMATION OF A PRESUMPTIVE POSTIVE SCREEN RESULT IS DESIRED, CALL CHEMISTRY ([phone]) AND REQUEST URINE TO BE SENT TO REFERENCE LAB. FOR A LIST OF CLOSELY RELATED COMPOUNDS PLEASE CALL THE LAB. Lab Order: Ethyl Alcohol (ethanol); SPEC'M 10/03/16 22:29 Test: ETHYL ALCOHOL (ETHANOL); Value: 0.098; Range: 0.000-0.010; Abnormal: Above high normal; Units: %; Status: F Lab Order: Liver Profile; SPEC'M 10/03/16 22:29 Test: AST/SGOT; Value: 17; Range: 15-37; Units: U/L; Status: F Test: ALT/SGPT; Value: 38; Range: 12-78; Units: U/L; Status: F Test: ALKALINE PHOSPHATASE; Value: 50; Range: 45-117; Units: U/L; Status: F Test: BILIRUBIN,TOTAL; Value: 0.4; Range: 0.2-1.0; Units: MG/DL; Status: F Test: BILIRUBIN,DIRECT; Value: 0.1; Range: 0.0-0.2; Units: MG/DL; Status: F Test: TOTAL PROTEIN; Value: 7.5; Range: 6.4-8.2; Units: GM/DL; Status: F Test: ALBUMIN; Value: 4.1; Range: 3.2-5.2; Units: GM/DL; Status: F Test: ALBUMIN/GLOBULIN RATIO; Value: 1.21; Range: 1.00-1.93; Status: F Lab Order: Salicylate Level; SPEC'M 10/03/16 22:29 Test: SALICYLATE LEVEL; Value: < 1.7; Range: 5.0-30.0; Abnormal: Below low normal; Units: MG/DL; Status: F Lab Order: Thyroid Stimulating Hormone; SPEC'M 10/03/16 22:29 Test: THYROID STIMULATING HORMONE; Value: 5.330; Range: 0.358-3.740; Abnormal: Above high normal; Units: uIU/ML; Status: F Outcome: 10/04 13:28 Decision to Hospitalize by Provider. sd1 14:35 Discharge Assessment: patient administered narcotics - no. The following High Risk rs3 Discharge criteria are identified: None. Admitted to Psych accompanied by tech, via wheelchair, with chart. Condition: stable. No special radiology studies were completed. Property :Personal belongings accompany Pt. 14:40 Patient left the ED. tmm1 Signatures: Dispatcher [employer] EDMS Sharri Gilliland MD MD sd1 Megan Coronado RN RN catrina Palencia, Lyric, PSA PSA rb Zeke, Jericho, PSA PSA cs Florecita Appiah, Reg Reg gb Edgarwendimanny, Neeraj, Security Aide [facility] Simpson, Armen tr Jamaal, Jerrica, Stock Taker Unit ml3 Thao Camacho,RN RN kr3 Kvng Noriega,PACKAGING INSPECTOR PACKAGING INSPECTOR rw1 Danika Rothman, DOSIMETRIST DOSIMETRIST Giovanna GraceRN RN rs3 Deondre Mckeon, RN RN ml6 Edison, Lorrie, PSA PSA jfb Stoney Marquis, DO DO cs11 McLear, Ayesha, CHIEF VENDOR QUALITY CHIEF VENDOR QUALITY tmm1 Amy Quigley,RN RN Devi Gee, Reg Reg ks16 Robert, Sharri Drummond, Humphrey, CHIEF VENDOR QUALITY CHIEF VENDOR QUALITY jmv Chart Complete MTDD
--- NOTE | 2016-10-06 15:41 | EDDOCDS ---
Physician Documentation [facility] Name: Ruel Estrada Age: 36 yrs Sex: Male : 1980 Arrival Date: 10/03/2016 Time: 22:08 Bed OBSERVATION Private MD: Isaac Delaney [facility] Disposition: 10/04/16 13:28 Hospitalization ordered by Omid Leon for Inpatient Admission. Preliminary diagnosis is Major depressive disorder, recurrent, moderate. - Bed requested for Admit. - Status is Inpatient Admission. tmm1 - Condition is Stable. - Problem is an acute exacerbation. - Symptoms are unchanged. Historical: - Allergies: No known drug Allergies; - Home Meds: 1. lorazepam 0.5 mg Oral tab 1 tab 3 times per day pt took 2 at 18:30 and 2 at 19:30 2. prazosin 5 mg Oral cap 1 cap nightly 3. oxcarbazepine 150 mg oral tab 1 tab in moring and 1 tab at night 4. bupropion HCl 150 mg Oral TbER 1 tab once daily 5. trazodone 50 mg Oral tab nightly 6. lisinopril 20 mg Oral tab 1 tab once daily hasn't taken in a few weeks - PMHx: Hypertension; PTSD; Anxiety; Depression; - PSHx: none; - Social history: Smoking status: Patient states was never smoker of tobacco. Patient uses alcohol weekly. pt drank 2 40 oz beers tonight. No barriers to communication noted, The patient speaks fluent Chilean. - Family history: Not pertinent. - : The pt / caregiver states he / she is not on anticoagulants. Home medication list is obtained from the patient. - Exposure Risk Screening:: None identified. Vital Signs: 10/03 22:25 BP 157 / 86 (auto/); sep 29: Pulse 127 MON; Pulse Ox 93% ; sep 22:36 BP 140 / 78; Pulse 133; Resp 20; Temp 92(O); Pulse Ox 92% on R/A; Weight 90.72 kg / 200 jmv lbs (R); Height 5 ft. 10 in. (177.80 cm) (R); Pain 6/10; 22:45 Pulse 123 MON; Pulse Ox 92% ; mlc 22:45 BP 109 / 50 (auto/); mlc 23:00 BP 116 / 56 (auto/); mlc 23:01 Pulse 122 MON; Pulse Ox 92% ; mlc 23:11 Temp 98.0(TE); 23:15 BP 142 / 75 (auto/); sep 23:16 Pulse 119 MON; Pulse Ox 91% ; sep 23:30 BP 121 / 61 (auto/); Resp 16; sep 23:31 Pulse 111 MON; Pulse Ox 96% on R/A; sep 23:32 Pulse 110 MON; mlc 10/04 06:21 BP 135 / 84; Pulse 95; Resp 18; Temp 96.9(TE); Pulse Ox 96% on R/A; Pain 0/10; rw1 12:29 BP 141 / 95; Pulse 108; Resp 18; Temp 98(O); Pulse Ox 99% on R/A; Pain 0/10; rs3 14:35 BP 140 / 92; Pulse 100; Resp 18; Temp 98(T); Pulse Ox 99% on R/A; Pain 0/10; rs3 10/03 22:36 Body Mass Index 28.70 (90.72 kg, 177.80 cm) julissa MDM: 10/03 22:13 Consult PFS/PSA/Commissions Specialist ordered. le 22:13 Consult PFS/PSA/Commissions Specialist: Patient's case requires discussion with on-call le Psychiatrist ordered. 22:13 PSA/PFS to call Nursing Pulley Maintainer, to enter patient data on [place] Safe [place] if patient le involuntarily admitted or transferred for SI or HI ordered. 22:13 Confirm accurate psychiatric medication list and times of last dosage ordered. le 22:13 Detain Pt Until Medically/PFS Cleared ordered. le 22:16 Acetaminophen Level Ordered. EDMS 22:16 Basic Metabolic Profile Ordered. EDMS 22:16 Complete Blood Count Ordered. EDMS 22:16 Drug Eval Toxicology ED Only Ordered. EDMS 22:16 Ethyl Alcohol (ethanol) Ordered. EDMS 22:16 Liver Profile Ordered. EDMS 22:16 Salicylate Level Ordered. EDMS 22:16 Thyroid Stimulating Hormone Ordered. EDMS 23:21 Drug Eval Toxicology ED Only Reviewed. le 23:21 Complete Blood Count Reviewed. le 23:25 Ethyl Alcohol (ethanol) Reviewed. le 23:26 Acetaminophen Level Reviewed. le 23:26 Basic Metabolic Profile Reviewed. le 23:26 Salicylate Level Reviewed. le 23:26 Thyroid Stimulating Hormone Reviewed. le 23:26 Liver Profile Reviewed. le 23:35 The patient has been medically cleared for psychiatric evaluation, admission and/or le transfer. 23:38 Financial registration complete. [facility] 23:39 COUNT INCLUDES THE [facility] Payment Agreement was scanned into [employer] and attached to record. 10/04 03:53 REGULAR DIET PLASTIC GIBBONS+DIET ordered. EDMS 05:55 Consult PFS/PSA/Commissions Specialist complete. jfb 05:55 Consult PFS/PSA/Commissions Specialist: Patient's case requires discussion with on-call jfb Psychiatrist complete. 05:55 PSA/PFS to call Nursing Pulley Maintainer, to enter patient data on [place] Safe Act if patient jfb involuntarily admitted or transferred for SI or HI complete. 11:30 REGULAR DIET PLASTIC GIBBONS+DIET ordered. EDMS 13:11 PCR was scanned into [employer] and attached to record. gb 13:38 Admit to IMHU: ordered. EDMS 13:58 MHE Legal paperwork was scanned into [employer] and attached to record. 10/05 09:13 T-Sheet-- Draft Copy was scanned into [employer] and attached to record. [facility] Signatures: Dispatcher [employer] EDWY Sharri Gilliland MD MD sd1 Jericho Alanis, PSA PSA cs Florecita Appiah, Reg Reg gb Danika Rothman, ARMHOLE BASTER HAND ARMHOLE BASTER HAND Lorrie Rosen, PSA PSA jfb Ayesha Nava, DOUGH CUTTER DOUGH CUTTER tmm1 Amy Quigley,RN RN Devi Gee, Reg Reg ks16 Sharri Jones [facility] The chart was reviewed and I authenticate all verbal orders and agree with the evaluation and treatment provided.Attachments: 10/03 23:39 COUNT INCLUDES THE [facility] Payment Agreement 10/05 09:13 T-Sheet-- Draft Copy se Chart Complete MTDD
--- NOTE | 2016-10-06 15:41 | EDDOCDS ---
Physician Documentation [facility] Name: Ruel Estrada Age: 36 yrs Sex: Male : 1980 Arrival Date: 10/03/2016 Time: 22:08 Bed OBSERVATION Private MD: Isaac Delaney [facility] Disposition: 10/04/16 13:28 Hospitalization ordered by Omid Leon for Inpatient Admission. Preliminary diagnosis is Major depressive disorder, recurrent, moderate. - Bed requested for Admit. - Status is Inpatient Admission. tmm1 - Condition is Stable. - Problem is an acute exacerbation. - Symptoms are unchanged. Historical: - Allergies: No known drug Allergies; - Home Meds: 1. lorazepam 0.5 mg Oral tab 1 tab 3 times per day pt took 2 at 18:30 and 2 at 19:30 2. prazosin 5 mg Oral cap 1 cap nightly 3. oxcarbazepine 150 mg oral tab 1 tab in moring and 1 tab at night 4. bupropion HCl 150 mg Oral TbER 1 tab once daily 5. trazodone 50 mg Oral tab nightly 6. lisinopril 20 mg Oral tab 1 tab once daily hasn't taken in a few weeks - PMHx: Hypertension; PTSD; Anxiety; Depression; - PSHx: none; - Social history: Smoking status: Patient states was never smoker of tobacco. Patient uses alcohol weekly. pt drank 2 40 oz beers tonight. No barriers to communication noted, The patient speaks fluent Estonian. - Family history: Not pertinent. - : The pt / caregiver states he / she is not on anticoagulants. Home medication list is obtained from the patient. - Exposure Risk Screening:: None identified. Vital Signs: 10/03 22:25 BP 157 / 86 (auto/); sep 29: Pulse 127 MON; Pulse Ox 93% ; sep 22:36 BP 140 / 78; Pulse 133; Resp 20; Temp 92(O); Pulse Ox 92% on R/A; Weight 90.72 kg / 200 jmv lbs (R); Height 5 ft. 10 in. (177.80 cm) (R); Pain 6/10; 22:45 Pulse 123 MON; Pulse Ox 92% ; mlc 22:45 BP 109 / 50 (auto/); mlc 23:00 BP 116 / 56 (auto/); mlc 23:01 Pulse 122 MON; Pulse Ox 92% ; mlc 23:11 Temp 98.0(TE); 23:15 BP 142 / 75 (auto/); sep 23:16 Pulse 119 MON; Pulse Ox 91% ; sep 23:30 BP 121 / 61 (auto/); Resp 16; sep 23:31 Pulse 111 MON; Pulse Ox 96% on R/A; sep 23:32 Pulse 110 MON; mlc 10/04 06:21 BP 135 / 84; Pulse 95; Resp 18; Temp 96.9(TE); Pulse Ox 96% on R/A; Pain 0/10; rw1 12:29 BP 141 / 95; Pulse 108; Resp 18; Temp 98(O); Pulse Ox 99% on R/A; Pain 0/10; rs3 14:35 BP 140 / 92; Pulse 100; Resp 18; Temp 98(T); Pulse Ox 99% on R/A; Pain 0/10; rs3 10/03 22:36 Body Mass Index 28.70 (90.72 kg, 177.80 cm) julissa MDM: 10/03 22:13 Consult PFS/PSA/Manager Clinical Pharmacy ordered. le 22:13 Consult PFS/PSA/Manager Clinical Pharmacy: Patient's case requires discussion with on-call le Psychiatrist ordered. 22:13 PSA/PFS to call Nursing Bush Hog Operator, to enter [place] data [place] if patient le involuntarily admitted or transferred for SI or HI ordered. 22:13 Confirm accurate psychiatric medication list and times of last dosage ordered. le 22:13 Detain Pt Until Medically/PFS Cleared ordered. le 22:16 Acetaminophen Level Ordered. EDMS 22:16 Basic Metabolic Profile Ordered. EDMS 22:16 Complete Blood Count Ordered. EDMS 22:16 Drug Eval Toxicology ED Only Ordered. EDMS 22:16 Ethyl Alcohol (ethanol) Ordered. EDMS 22:16 Liver Profile Ordered. EDMS 22:16 Salicylate Level Ordered. EDMS 22:16 Thyroid Stimulating Hormone Ordered. EDMS 23:21 Drug Eval Toxicology ED Only Reviewed. le 23:21 Complete Blood Count Reviewed. le 23:25 Ethyl Alcohol (ethanol) Reviewed. le 23:26 Acetaminophen Level Reviewed. le 23:26 Basic Metabolic Profile Reviewed. le 23:26 Salicylate Level Reviewed. le 23:26 Thyroid Stimulating Hormone Reviewed. le 23:26 Liver Profile Reviewed. le 23:35 The patient has been medically cleared for psychiatric evaluation, admission and/or le transfer. 23:38 Financial registration complete. [facility] 23:39 [facility] Payment Agreement was scanned into [employer] and attached to record. 10/04 03:53 REGULAR DIET PLASTIC GIBBONS+DIET ordered. EDMS 05:55 Consult PFS/PSA/Manager Clinical Pharmacy complete. jfb 05:55 Consult PFS/PSA/Manager Clinical Pharmacy: Patient's case requires discussion with on-call jfb Psychiatrist complete. 05:55 PSA/PFS to call Nursing Bush Hog Operator, to enter patient data on [place] Safe [place] if patient jfb involuntarily admitted or transferred for SI or HI complete. 11:30 REGULAR DIET PLASTIC GIBBONS+DIET ordered. EDMS 13:11 PCR was scanned into [employer] and attached to record. gb 13:38 Admit to IMHU: ordered. EDMS 13:58 MHE Legal paperwork was scanned into [employer] and attached to record. 10/05 09:13 T-Sheet-- Draft Copy was scanned into [employer] and attached to record. [facility] Signatures: Dispatcher [employer] EDNV Sharri Gilliland MD MD sd1 Jericho Alanis, PSA PSA cs Florecita Appiah, Reg Reg gb Danika Rothman, SIGNING TEACHER SIGNING TEACHER Lorrie Rosen, PSA PSA jfb Ayesha Nava, SENIOR INFORMATION SECURITY ARCHITECT SENIOR INFORMATION SECURITY ARCHITECT tmm1 Amy uQigley,RN RN Devi Gee, Reg Reg ks16 Sharri Jones [facility] The chart was reviewed and I authenticate all verbal orders and agree with the evaluation and treatment provided.Attachments: 10/03 23:39 [facility] Payment Agreement 10/05 09:13 T-Sheet-- Draft Copy se Chart Complete MTDD
[2016-10-06 18:00] VITALS: BP 132/68
[2016-10-06] MEDS: traZODone 100 MG TAB PO PRN (20:06)
[2016-10-06] MEDS: PRAZOSIN 1 MG CAP PO SCH (20:07)
--- NOTE | 2016-10-06 23:25 | IPNPDOC ---
[facility] Progress Note Progress Note DATE OF SERVICE: 10/06/16 CHIEF COMPLAINT: Worsening depressive symptoms, suicidal ideations with no plan HISTORY OF THE PRESENT ILLNESS: Patient is 36-year-old male who presents to the emergency department after making suicidal statements to his reportedly overdosing on his medications. Patient has a past psychiatric history significant for PTSD and recent worsening depressive symptoms. She reports no history of suicide attempt and no history of self-injurious behavior. He reports he has been drinking excessively at least once per month. 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 Patient reports not taking his prescribed PTSD regimen for approximately 2 weeks prior to this presentation. He reported feeling the medications were not effective. He also reported erectile dysfunction side effects on Zoloft. Patient reports Zoloft and Trileptal are a new regimen. He reports his prior mental health provider had him on Wellbutrin and Lorazepam which he reported was effective and he was stable on the regimen. Patient is unsure why provider recently changed his regimen. Again the regimen of Trileptal and Zoloft have been any effect. Over the last 2 weeks patient has experienced increased depressive and PTSD symptoms. He has been isolative. He has experienced mood lability. He reports nightmares and night sweats have been well controlled on prazosin. Of note patient had a TSH greater than 5 on admission blood work. He reports his mother has history of thyroid gland issues. Patient also informed Trileptal can be toxic to the thyroid gland. Patient amenable to plan to monitor thyroid functioning off of Trileptal. Patient is engaged in his mental health care. He is amenable to modification of psychotropic meds. PAST PSYCHIATRIC HISTORY: Prior Psychiatric Disorder: Previous diagnoses of PTSD Outpatient Treatment: None currently Inpatient: This is patient's first Suicidal/Self injurious: None Psychotropic Medication History: Trileptal possible thyroid irritation, Prazosin , Zoloft-side effect of ED, Wellbutrin Substance use Hx: Patient reports history of alcohol use disorder severe symptoms in a binge pattern. She denies history of use of illicit substances. PRIMARY CARE PROVIDER: Flako Pisano. 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 ETOH - approximately once a month. Smokes - none. Recreational drug use - none. PAST MEDICAL HISTORY: 1. Hypertension. 2. Post traumatic stress disorder (PTSD). 3. Anxiety. 4. Depression. 5. LBP. PAST SURGICAL HISTORY: Negative. FAMILY HISTORY: Noncontributory. HOME MEDICATIONS: - lisinopril 10 mg by mouth daily, but he had not taken it for a week, he states he was not sure he needed it, he is agreeable on taking it now - Wellbutrin XL 150 mg by mouth daily - gabapentin 300 mg by mouth three times a day - lorazepam 0.5 mg by mouth three times a day as needed anxiety - oxcarbazepine 300 mg by mouth twice a day - prazosin 5 mg by mouth at bedtime - Zomig 5 mg by mouth as needed for headache ALLERGIES: No known allergies VITAL SIGNS: Within normal limits LABORATORY DATA: Please see below. MENTAL STATUS EXAMINATION: Patient is a 36-year-old male who appears stated age, dressed in hospital attire, notably anxious Speech: Is regular rate and rhythm, spontaneous Thought processes: Linear, Goal directed. Thought content: Focused on increasing symptoms of PTSD and its effect on his marriage Description of abnormal or psychotic thoughts: No perceptual issues noted or reported. Judgment: fair. Insight: fair Orientation to time, place and person. Recent and remote memory: Intact. Immediate short-term and long-term memory is: intact. Attention span and concentration: fair. Language: Normal. Fund of knowledge: good. Mood: depressed /anxious Affect: anxious . PROBLEM LIST: 1. Suicidal ideations. 2. Depression. 3. Anxiety. ASSESSMENT: -PTSD PLAN: [ 1.~ ~ Patient was admitted on a 9.30 legal status, 2.~ ~ Complete history was obtained. 3.~ ~ With patients permission, family will be contacted and database will be expanded. 4.~ ~Will discontinue Trileptal as this medication may be attributing to decreased thyroid hormone production. Continue remaining medication list as currently prescribed. Will perform a repeat TSH after discontinuation of Trileptal to monitor for resolution of presumed hypothyroidism. 5.~ ~ Patient will be provided with protected environment. 6.~ ~ Patient will be treated with individual, group, and milieu therapies. 7.~ ~ Patient will receive supportive psych-education. 8.~ ~ Discharge planning will commence immediately. 9.~ ~ Length of patients stay will be between 3-5 days 10.~ Outpatient follow-up treatment will be strongly recommended. TIME SPENT COUNSELING AND COORDINATING INITIAL CARE: 60 minutes. Vital Signs Vital Signs Date Time Temp Pulse Resp B/P Pulse Ox O2 Delivery O2 Flow Rate FiO2 10/06/16 20:07 132/68 10/06/16 18:00 97.0 76 16 Laboratory Data 24H Labs Laboratory Tests 2 10/06/16 14:29: Thyroid Stimulating Hormone (TSH) 3.720 Current Medications Current Medications Medications (Trade) Dose Ordered Sig/Lenka Route PRN Reason Start Time Stop Time Status Last Admin Dose Admin Acetaminophen (Tylenol Tab) 650 mg Q6HP PRN PO HEADACHE or DISCOMFORT 10/04/16 17:00 11/03/16 16:59 Al Hydrox/Mg Hydrox/Simethicone (Mylanta) 30 ml Q4HP PRN PO HEARTBURN/INDIGESTION 10/04/16 17:00 11/03/16 16:59 Bupropion HCl (Wellbutrin Xl) 150 mg DAILY PO 10/04/16 09:00 11/03/16 08:59 10/06/16 08:34 Home Med (Med Rec Complete!) ASDIRECTED XX 10/04/16 14:15 10/04/16 14:15 DC Lisinopril (Prinivil) 20 mg DAILY PO 10/04/16 09:00 11/03/16 08:59 10/06/16 08:34 Lorazepam (Ativan) 0.5 mg BID PO 10/04/16 21:00 10/11/16 20:59 10/06/16 20:06 Magnesium Hydroxide (Milk Of Magnesia) 30 ml DAILYPRN PRN PO CONSTIPATION 10/04/16 17:00 11/03/16 16:59 Oxcarbazepine (Trileptal) 150 mg BID PO 10/04/16 21:00 10/06/16 14:10 DC 10/06/16 08:34 Prazosin HCl (Minipress) 5 mg QHS PO 10/04/16 21:00 11/03/16 20:59 10/06/16 20:07 Trazodone HCl (Desyrel) 100 mg QHSP PRN PO INSOMNIA 10/04/16 17:00 11/03/16 16:59 10/06/16 20:06 Allergies Coded Allergies: No Known Allergies (Unverified , 10/04/16) NITZA TURNER MD Oct 06, 2016 23:25
[2016-10-07 06:56] VITALS: BP 112/67
[2016-10-07 07:19] LABS: ANION GAP 9 MEQ/L (8-16); BLOOD UREA NITROGEN 11 MG/DL (7-18); CALCIUM LEVEL 9.5 MG/DL (8.5-10.1); CARBON DIOXIDE LEVEL 28 MEQ/L (21-32); CHLORIDE LEVEL 102 MEQ/L (98-107); CREATININE FOR GFR 1.16 MG/DL (0.70-1.30); GLOMERULAR FILTRATION RATE > 60.0 (>60); GLUCOSE, FASTING 101 MG/DL (70-105); POTASSIUM SERUM 4.1 MEQ/L (3.5-5.1); SODIUM LEVEL 139 MEQ/L (136-145)
[2016-10-07] MEDS: LORazepam 0.5 MG TAB PO SCH (08:02)
[2016-10-07] MEDS: buPROPion **XL** TABLET 150MG (WELLBUTRIN XL) PO SCH (08:02)
[2016-10-07] MEDS: LISINOPRIL 20 MG TAB PO SCH (08:03)
--- NOTE | 2016-10-07 08:33 | HPE ---
DATE OF ADMISSION: 10/04/2016 Please refer to the psychiatric history and evaluation for further details on this admission. This examination and history is intended for medical issues which may need treatment, followup or consultation on this 36-year-old male. ALLERGIES: No known allergies. PRIMARY CARE PROVIDER: Flako Pisano. 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 ETOH - approximately once a month. Smokes - none. Recreational drug use - none. PAST MEDICAL HISTORY: 1. Hypertension. 2. Post traumatic stress disorder (PTSD). 3. Anxiety. 4. Depression. PAST SURGICAL HISTORY: Negative. FAMILY HISTORY: Noncontributory. HOME MEDICATIONS: - lisinopril 10 mg by mouth daily, but he had not taken it for a week, he states he was not sure he needed it, he is agreeable on taking it now - Wellbutrin XL 150 mg by mouth daily - gabapentin 300 mg by mouth three times a day - lorazepam 0.5 mg by mouth three times a day as needed anxiety - oxcarbazepine 300 mg by mouth twice a day - prazosin 5 mg by mouth at bedtime - Zomig 5 mg by mouth as needed for headache LABORATORY STUDIES: WBC 7.8, hemoglobin 16.1, hematocrit 43.8 and platelets 205. Sodium 142, potassium slightly low at 3.2, chloride 107, CO2 24, BUN 14, creatinine 1.02. Ethyl alcohol 0.098. Ten systems review was done. Patient had no complaints. PHYSICAL EXAMINATION: 36-year-old cooperative male in no acute distress. Height 70 inches. Weight 94.1 kg. Body mass index (BMI) 29.8. Blood pressure 132/68. Pulse 76. Respirations 16. Temperature 97. The patient is alert and oriented times three. Pupils equal and reactive to light. Extraocular movements intact. Cornea and sclera clear. Conjunctiva normal. No facial asymmetry. Pharynx, tongue and gums pink and moist. Tongue is midline. Neck is supple, without lymphadenopathy. No thyromegaly. No goiter. Chest clear to auscultation, without wheeze or retraction. Heart is regular. Abdomen benign. Bowel sounds positive. Genitourinary ()/Rectal: Not done. Extremities show equal strength. Full range of motion. No cyanosis, clubbing or edema. Peripheral pulses equal and palpable bilaterally. Skin is warm and dry. IMPRESSION AND PLAN: 1. Psychiatric. Plan per psychiatry. 2. History of hypertension. Resume lisinopril 20 mg by mouth daily. 3. Potassium of 3.2, will recheck in the morning. 4. No other acute medical issues.
[2016-10-07 12:57] VITALS: BP 138/70
--- NOTE | 2016-10-07 14:07 | IPNPDOC ---
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 Pt. states he stopped taking meds approximately 2 weeks ago as he did not feel they were working. Pt. became increasingly agitated with mood swings per . Pt. states he was stubborn and frustrated due to his current situation with the [employer] and marriage. Pt. reports that he got into an argument with his who had wanted him to go with the family to one of his children's games. Pt. refused, took his "night meds" and proceeded to drink 2, 40 ounce beers. When pt's returned home, patient was slurring his words and stating "I want to peacefully". Pt' s. called 05-09- and was brought here for evaluation. VITAL SIGNS: See below. 97.8 81 16 112/67 NEW TEST RESULTS: NA, UDS on ADMIT: ETOH- 0.098, NEG for other substances. CURRENT MEDICATIONS: See below. Per pt. are as follows: Lorazepam 0.5 mg po bid prn for anxiety, Prazosin 5 mg po q hs for nightmares, trazodone 100 mg po qhs for sleep, Bupropion XL 150 mg po q am for depression/anxiety. Pt. states he has [place] Pt. had become frustrated by the effort. 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 Pt. is pleasant and cooperative, well kempt, of normal weight with steady gait. Pt. is able to ambulate without assistance. Speech: Is of normal rate and volume. Pt. is articulate, coherent and spontaneous. Language skills are intact. Thought processes including: Clear and goal-directed. Thought content: rational, logical. Abstract reasoning, and computation: Adequate. Description of associations: intact. Description of abnormal or psychotic thoughts: Pt. denies hallucinations, delusions, paranoia, preoccupations, homicidal or suicidal ideation, obsessions or compulsions. Judgment: Poor. Insight: Limited. Orientation to: Time, place, person and situation. Recent and remote memory: No problems per pt. Attention span and concentration: Good. Fund of knowledge: Adequate. Mood: "Good, much better". Rational, restricted. Affect: Appropriate, restricted. DIAGNOSES: 1. Major depressive disorder, recurrent 2. PTSD. 3. Alcohol use disorder. ASSESSMENT:Pt. is a healthy male who is transition with [employer] [place] med board [place] of the [employer]. Pt. states this is due to Back issues-herniated discs due to service related injuries. Pt. states he has also suffered a TBI from a combat injury. Pt. has currently been 300+ days waiting for his release. Pt. has been active on the unit, engaging with peers, attending unit activities and groups. Pt. encouraged to use strategies learned to improve coping skills and effectiveness. Pt. has been working with discharge planning process for success at discharge. Pt. to followup with PCP upon discharge, schedule and attend therapy and medication management appointments. Pt. to attend wellness program [place] base as needed. Pt. encourage to seek alcohol sobriety support as needed MANAGEMENT PLAN: Pt. to re-start gabapentin 300 mg tid, decrease trazodone from 100 mg to 50 mg po qhs prn for insomnia, may repeat dose x 1, decrease Prazosin from 5 mg ot 2 mg po qhs for nightmares, Change loarazepam 0.5 mg to q 12 h prn form bid prn for anxiety, Add hydroxyzine hydrochloride 50 mg po q 6 h prn for anxiety/agitation, continue bupropion xl 150 mg po q am for depression/anxiety. TIME SPENT: 25 minutes. Vital Signs Vital Signs Date Time Temp Pulse Resp B/P Pulse Ox O2 Delivery O2 Flow Rate FiO2 10/07/16 12:57 97.1 98 18 138/70 Laboratory Data 24H Labs Laboratory Tests 2 10/06/16 14:29: Thyroid Stimulating Hormone (TSH) 3.720 10/07/16 06:33: Anion Gap 9, Blood Urea Nitrogen 11, Creatinine 1.16, Sodium Level 139, Potassium Level 4.1, Chloride Level 102, Carbon Dioxide Level 28, Calcium Level 9.5, Glomerular Filtration Rate > 60.0 CBC/BMP Laboratory Tests 10/07/16 06:33 Calcium Level 9.5 Current Medications Current Medications Medications (Trade) Dose Ordered Sig/Lenka Route PRN Reason Start Time Stop Time Status Last Admin Dose Admin Acetaminophen (Tylenol Tab) 650 mg Q6HP PRN PO HEADACHE or DISCOMFORT 10/04/16 17:00 11/03/16 16:59 Al Hydrox/Mg Hydrox/Simethicone (Mylanta) 30 ml Q4HP PRN PO HEARTBURN/INDIGESTION 10/04/16 17:00 11/03/16 16:59 Bupropion HCl (Wellbutrin Xl) 150 mg DAILY PO 10/04/16 09:00 11/03/16 08:59 10/07/16 08:02 Home Med (Med Rec Complete!) ASDIRECTED XX 10/04/16 14:15 10/04/16 14:15 DC Lisinopril (Prinivil) 20 mg DAILY PO 10/04/16 09:00 11/03/16 08:59 10/07/16 08:03 Lorazepam (Ativan) 0.5 mg BID PO 10/04/16 21:00 10/11/16 20:59 10/07/16 08:02 Magnesium Hydroxide (Milk Of Magnesia) 30 ml DAILYPRN PRN PO CONSTIPATION 10/04/16 17:00 11/03/16 16:59 Oxcarbazepine (Trileptal) 150 mg BID PO 10/04/16 21:00 10/06/16 14:10 DC 10/06/16 08:34 Prazosin HCl (Minipress) 5 mg QHS PO 10/04/16 21:00 11/03/16 20:59 10/06/16 20:07 Trazodone HCl (Desyrel) 100 mg QHSP PRN PO INSOMNIA 10/04/16 17:00 11/03/16 16:59 10/06/16 20:06 Allergies Coded Allergies: No Known Allergies (Unverified , 10/04/16) CLARI VIRGEN NP Oct 07, 2016 14:07
[2016-10-07 18:00] VITALS: BP 147/89
[2016-10-07] MEDS ORDERED: LORazepam 0.5 MG TAB PO PRN (19:15)
[2016-10-07] MEDS: GABAPENTIN 300 MG CAP PO SCH (20:20)
[2016-10-07] MEDS: traZODone 50 MG TAB PO PRN (20:20)
[2016-10-07] MEDS: PRAZOSIN 1 MG CAP PO SCH (20:21)
[2016-10-08 06:41] VITALS: BP 128/70
[2016-10-08] MEDS: LISINOPRIL 20 MG TAB PO SCH (08:40)
[2016-10-08] MEDS: buPROPion **XL** TABLET 150MG (WELLBUTRIN XL) PO SCH (08:40)
[2016-10-08] MEDS: GABAPENTIN 300 MG CAP PO SCH ×3 (08:40→20:18)
[2016-10-08 12:00] VITALS: BP 138/87
[2016-10-08] MEDS: ACETAMINOPHEN TAB 650MG DOSE (2X325MG) PO PRN (15:33)
--- NOTE | 2016-10-08 15:40 | IPNPDOC ---
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 Pt. states he stopped taking meds approximately 2 weeks ago as he did not feel they were working. Pt. became increasingly agitated with mood swings per . Pt. states he was stubborn and frustrated due to his current situation with the [employer] and marriage. Pt. reports that he got into an argument with his who had wanted him to go with the family to one of his children's games. Pt. refused, took his "night meds" and proceeded to drink 2, 40 ounce beers. When pt's returned home, patient was slurring his words and stating "I want to peacefully". Pt' s. called 05-09- and was brought here for evaluation. VITAL SIGNS: See below. 97.2 79 18 128/70 NEW TEST RESULTS: NA, UDS on ADMIT: ETOH- 0.098, NEG for other substances. CURRENT MEDICATIONS: See below. Per pt. are as follows: Lorazepam 0.5 mg po bid prn for anxiety, Prazosin 5 mg po q hs for nightmares, trazodone 100 mg po qhs for sleep, Bupropion XL 150 mg po q am for depression/anxiety. Pt. states he has been trying to get [place] Pt. had become frustrated by the effort. 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 Pt. is pleasant and cooperative, well kempt, of normal weight with steady gait. Pt. is able to ambulate without assistance. Speech: Is of normal rate and volume. Pt. is articulate, coherent and spontaneous. Language skills are intact. Thought processes including: Clear and goal-directed. Thought content: rational, logical. Abstract reasoning, and computation: Adequate. Description of associations: intact. Description of abnormal or psychotic thoughts: Pt. denies hallucinations, delusions, paranoia, preoccupations, homicidal or suicidal ideation, obsessions or compulsions. Pt. admits to drinking too much which affected his ability to make good choices. Judgment: Poor. Insight: Limited. Orientation to: Time, place, person and situation. Recent and remote memory: "Good ". Attention span and concentration: Good. Fund of knowledge: Adequate. Mood: "It's good". Rational, restricted. Affect: Appropriate, restricted. DIAGNOSES: 1. Major depressive disorder, recurrent 2. PTSD. 3. Alcohol use disorder. ASSESSMENT: Pt. is a healthy male who is in transition with [employer] unit [place] med [place] of the [employer]. Pt. states this is due to Back issues-herniated discs due to service related injuries. Pt. states he has also suffered a TBI from a combat injury. Pt. has currently been 300+ days waiting for his release. Patient states she slept last night "like a baby ". Patient reports getting 8-1/ 2 hours of sleep with no nightmares. Patient states currently his anxiety is a 2 out of 10 depression as 0 out of 10. Patient states his baseline for anxiety is a 2 out of 10 depression is a 0-2 out of 10. Patient reports he has a lot of support [place] with a social media job titles psychologist and psychiatrist. Patient reports he also has a clinical pharmacist that keeps his meds on track. Pt. has been active on the unit, engaging with peers, attending unit activities and groups. Pt. encouraged to use strategies learned to improve coping skills and effectiveness. Pt. has been working with discharge planning process for success at discharge. Pt. to followup with PCP upon discharge, schedule and attend therapy and medication management appointments. Pt. to attend wellness program [place] base as needed. Pt. encourage to seek alcohol sobriety support as needed MANAGEMENT PLAN: Pt. to continue gabapentin 300 mg tid for mood, trazodone 50 mg po qhs prn for insomnia, may repeat dose x 1, Prazosin 2 mg po qhs for nightmares, lorazepam 0.5 mg q 12 h prn for anxiety, hydroxyzine hydrochloride 50 mg po q 6 h prn for anxiety/agitation, bupropion xl 150 mg po q am for depression/anxiety. TIME SPENT: 25 minutes. Vital Signs Vital Signs Date Time Temp Pulse Resp B/P Pulse Ox O2 Delivery O2 Flow Rate FiO2 10/08/16 12:00 98.1 85 16 138/87 Current Medications Current Medications Medications (Trade) Dose Ordered Sig/Lenka Route PRN Reason Start Time Stop Time Status Last Admin Dose Admin Acetaminophen (Tylenol Tab) 650 mg Q6HP PRN PO HEADACHE or DISCOMFORT 10/04/16 17:00 11/03/16 16:59 10/08/16 15:33 Al Hydrox/Mg Hydrox/Simethicone (Mylanta) 30 ml Q4HP PRN PO HEARTBURN/INDIGESTION 10/04/16 17:00 11/03/16 16:59 Bupropion HCl (Wellbutrin Xl) 150 mg DAILY PO 10/04/16 09:00 11/03/16 08:59 10/08/16 08:40 Gabapentin (Neurontin) 300 mg TID PO 10/07/16 21:00 11/06/16 20:59 10/08/16 15:33 Home Med (Med Rec Complete!) ASDIRECTED XX 10/04/16 14:15 10/04/16 14:15 DC Hydroxyzine HCl (Atarax) 50 mg Q6HP PRN PO ANXIETY/AGITATION 10/07/16 19:15 11/06/16 19:14 Lisinopril (Prinivil) 20 mg DAILY PO 10/04/16 09:00 11/03/16 08:59 10/08/16 08:40 Lorazepam (Ativan) 0.5 mg BID PO 10/04/16 21:00 10/07/16 19:14 DC 10/07/16 08:02 Lorazepam (Ativan) 0.5 mg BID PRN PO Anxiety/agitation 10/07/16 19:15 10/14/16 19:14 Magnesium Hydroxide (Milk Of Magnesia) 30 ml DAILYPRN PRN PO CONSTIPATION 10/04/16 17:00 11/03/16 16:59 Oxcarbazepine (Trileptal) 150 mg BID PO 10/04/16 21:00 10/06/16 14:10 DC 10/06/16 08:34 Prazosin HCl (Minipress) 2 mg QHS PO 10/07/16 21:00 11/06/16 20:59 10/07/16 20:21 Prazosin HCl (Minipress) 5 mg QHS PO 10/04/16 21:00 10/07/16 19:14 DC 10/06/16 20:07 Trazodone HCl (Desyrel) 50 mg QHSP PRN PO INSOMNIA 10/07/16 19:15 11/06/16 19:14 10/07/16 20:20 Trazodone HCl (Desyrel) 100 mg QHSP PRN PO INSOMNIA 10/04/16 17:00 10/07/16 19:14 DC 10/06/16 20:06 Allergies Coded Allergies: No Known Allergies (Unverified , 10/04/16) CLARI VIRGEN NP Oct 08, 2016 15:40
[2016-10-08 20:05] VITALS: BP 134/88
[2016-10-08] MEDS: PRAZOSIN 1 MG CAP PO SCH (20:18)
[2016-10-08] MEDS: traZODone 50 MG TAB PO PRN (20:18)
[2016-10-08] MEDS: hydrOXYzine 50 MG TAB PO PRN (20:19)
[2016-10-09 06:35] VITALS: BP 146/86
[2016-10-09] MEDS: buPROPion **XL** TABLET 150MG (WELLBUTRIN XL) PO SCH (08:15)
[2016-10-09] MEDS: LISINOPRIL 20 MG TAB PO SCH (08:15)
[2016-10-09] MEDS: GABAPENTIN 300 MG CAP PO SCH ×3 (08:15→20:16)
[2016-10-09 12:11] VITALS: BP 131/85
[2016-10-09] MEDS ORDERED: WELLTAB38 PO (16:40)
[2016-10-09] MEDS ORDERED: GABA300C3 PO (16:40)
[2016-10-09] MEDS ORDERED: TRAZO50TA PO (16:40)
[2016-10-09] MEDS ORDERED: PRAZ2CAP PO (16:40)
[2016-10-09] MEDS ORDERED: HYDRO50TAB PO (16:40)
--- NOTE | 2016-10-09 17:00 | IPNPDOC ---
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 Pt. states he stopped taking meds approximately 2 weeks ago as he did not feel they were working. Pt. became increasingly agitated, with worsening mood swings per . Pt. states he was stubborn and frustrated due to his current situation with the [employer] and marriage. Pt. reports that he got into an argument with his who had wanted him to go with the family to one of his children's games. Pt. refused , took his "night meds" and proceeded to drink 2, 40 ounce beers. When pt's returned home, patient was slurring his words and stating "I want to peacefully". Pt's. called 05-09- and was brought here for evaluation. VITAL SIGNS: See below. 97. 3 86 20 146/86 NEW TEST RESULTS: NA, UDS on ADMIT: ETOH- 0.098, NEG for other substances. CURRENT MEDICATIONS: See below. Per pt. on admit are as follows: Lorazepam 0.5 mg po bid prn for anxiety, Prazosin 5 mg po q hs for nightmares, trazodone 100 mg po qhs for sleep, Bupropion XL 150 mg po q am for depression/anxiety. Pt. states he has been trying to get his med[place] Pt. had become frustrated by the effort. 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 Pt. is pleasant and cooperative, well kempt, of normal weight with steady gait. Pt. is able to ambulate without assistance. Speech: Is of normal rate and volume. Pt. is articulate, coherent and spontaneous. Language skills are intact. Thought processes including: Clear and goal-directed. Thought content: rational, logical. Abstract reasoning, and computation: Adequate. Description of associations: intact. Description of abnormal or psychotic thoughts: Pt. denies hallucinations, delusions, paranoia, preoccupations, homicidal or suicidal ideation, obsessions or compulsions. Pt. admits to drinking too much which affected his ability to make good choices on the night he was admitted. Judgment: Poor. Insight: Limited. Orientation to: Time, place, person and situation. Recent and remote memory: "Good ". Attention span and concentration: Good. Fund of knowledge: Adequate. Mood: "I'm good". Rational, restricted. Affect: Appropriate, restricted. DIAGNOSES: 1. Major depressive disorder, recurrent 2. PTSD. 3. Alcohol use disorder. ASSESSMENT: Pt. is a healthy male who is in transition with [employer] unit [place] for med board [place] of the [employer]. Pt. states this is due to Back issues-herniated discs due to service related injuries. Pt. states he has also suffered a TBI from a combat injury. Pt. has currently been 300+ days waiting for his release. Patient reports getting 9 hours of sleep with no nightmares last night. Pt. reports he did have a weird dream which did not wake him up. Pt. feels his current energy level is good. Patient states currently his anxiety is a 0 out of 10; depression is 0 out of 10. Patient states his baseline for anxiety is a 2 out of 10; depression is a 0-2 out of 10. Patient reports he has a lot of support [place] with a licensed social worker, psychologist, psychiatrist , clinical pharmacist. Pt. has been active on the unit, engaging with peers, attending unit activities and groups. Pt. encouraged to use strategies learned to improve coping skills and effectiveness. Pt. has been working with discharge planning process for success at discharge. Pt. to followup with PCP upon discharge, schedule and attend therapy and medication management appointments. Pt. to attend wellness program [place] base as needed. Pt. encourage to seek alcohol sobriety support as needed MANAGEMENT PLAN: Pt. to continue gabapentin 300 mg tid for mood, trazodone 50 mg po qhs prn for insomnia, may repeat dose x 1, Increase Prazosin from 2 mg to 4 mg po qhs for night terrors/nightmares, lorazepam 0.5 mg q 12 h prn for anxiety, hydroxyzine hydrochloride 50 mg po q 6 h prn for anxiety/agitation, bupropion xl 150 mg po q am for depression/anxiety. TIME SPENT: 25 minutes. Vital Signs Vital Signs Date Time Temp Pulse Resp B/P Pulse Ox O2 Delivery O2 Flow Rate FiO2 10/09/16 12:11 97.6 98 16 131/85 Current Medications Current Medications Medications (Trade) Dose Ordered Sig/Lenka Route PRN Reason Start Time Stop Time Status Last Admin Dose Admin Acetaminophen (Tylenol Tab) 650 mg Q6HP PRN PO HEADACHE or DISCOMFORT 10/04/16 17:00 11/03/16 16:59 10/08/16 15:33 Al Hydrox/Mg Hydrox/Simethicone (Mylanta) 30 ml Q4HP PRN PO HEARTBURN/INDIGESTION 10/04/16 17:00 11/03/16 16:59 Bupropion HCl (Wellbutrin Xl) 150 mg DAILY PO 10/04/16 09:00 11/03/16 08:59 10/09/16 08:15 Gabapentin (Neurontin) 300 mg TID PO 10/07/16 21:00 11/06/16 20:59 10/09/16 15:36 Home Med (Med Rec Complete!) ASDIRECTED XX 10/04/16 14:15 10/04/16 14:15 DC Hydroxyzine HCl (Atarax) 50 mg Q6HP PRN PO ANXIETY/AGITATION 10/07/16 19:15 11/06/16 19:14 10/08/16 20:19 Lisinopril (Prinivil) 20 mg DAILY PO 10/04/16 09:00 11/03/16 08:59 10/09/16 08:15 Lorazepam (Ativan) 0.5 mg BID PO 10/04/16 21:00 10/07/16 19:14 DC 10/07/16 08:02 Lorazepam (Ativan) 0.5 mg BID PRN PO Anxiety/agitation 10/07/16 19:15 10/14/16 19:14 Magnesium Hydroxide (Milk Of Magnesia) 30 ml DAILYPRN PRN PO CONSTIPATION 10/04/16 17:00 11/03/16 16:59 Oxcarbazepine (Trileptal) 150 mg BID PO 10/04/16 21:00 10/06/16 14:10 DC 10/06/16 08:34 Prazosin HCl (Minipress) 2 mg QHS PO 10/07/16 21:00 11/06/16 20:59 10/08/16 20:18 Prazosin HCl (Minipress) 5 mg QHS PO 10/04/16 21:00 10/07/16 19:14 DC 10/06/16 20:07 Trazodone HCl (Desyrel) 50 mg QHSP PRN PO INSOMNIA 10/07/16 19:15 11/06/16 19:14 10/08/16 20:18 Trazodone HCl (Desyrel) 100 mg QHSP PRN PO INSOMNIA 10/04/16 17:00 10/07/16 19:14 DC 10/06/16 20:06 Allergies Coded Allergies: No Known Allergies (Unverified , 10/04/16) CLARI VIRGEN NP Oct 09, 2016 17:00
[2016-10-09 18:00] VITALS: BP 158/93
[2016-10-09] MEDS: traZODone 50 MG TAB PO PRN (20:16)
[2016-10-09] MEDS: PRAZOSIN 1 MG CAP PO SCH (20:17)
[2016-10-09] MEDS: hydrOXYzine 50 MG TAB PO PRN (21:39)
[2016-10-09] MEDS: ACETAMINOPHEN TAB 650MG DOSE (2X325MG) PO PRN (21:39)
[2016-10-10 06:48] VITALS: BP 122/68
[2016-10-10 08:03] VITALS: BP 122/68
[2016-10-10] MEDS: LISINOPRIL 20 MG TAB PO SCH (08:03)
[2016-10-10] MEDS: GABAPENTIN 300 MG CAP PO SCH (08:03)
[2016-10-10] MEDS: buPROPion **XL** TABLET 150MG (WELLBUTRIN XL) PO SCH (08:03)
--- NOTE | 2016-10-10 12:04 | DS.PDOC ---
[facility] Discharge Summary Discharge Summary DATE OF ADMISSION: Oct 04, 2016 at 14:48 DATE OF DISCHARGE: Oct 10, 2016 at 10:35 DISCHARGE DIAGNOSES: 1. Major depressive disorder, recurrent 2. PTSD. 3. Alcohol use disorder. 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 Pt. states he stopped taking meds approximately 2 weeks ago as he did not feel they were working. Pt. became increasingly agitated, with worsening mood swings per . Pt. states he was stubborn and frustrated due to his current situation with the [employer] and marriage. Pt. reports that he got into an argument with his who had wanted him to go with the family to one of his children's games. Pt. refused, took his "night meds" and proceeded to drink 2, 40 ounce beers. When pt's returned home, patient was slurring his words and stating "I want to peacefully". Pt's. called and was brought here for evaluation. TEST RESULTS: NA, UDS on ADMIT: ETOH- 0.098, NEG for other substances. TREATMENT AND PROGRESS ON THE UNIT: Pt. is a healthy male who is in transition with [employer] unit [place] for med board [place] of the [employer]. Pt. states this is due to Back issues-herniated discs due to service related injuries. Pt. states he has also suffered a TBI from a combat injury. Pt. has currently been 300+ days waiting for his release. Patient reports getting 9 hours of sleep with no nightmares last night. Pt. reports he did have a weird dream which did not wake him up. Pt. feels his current energy level is good. Patient states currently his anxiety is a 0 out of 10; depression is 0 out of 10. Patient states his baseline for anxiety is a 2 out of 10; depression is a 0-2 out of 10. Patient reports he has a lot of support [place] with a social media campaign manager, psychologist, psychiatrist, clinical pharmacist. Pt. has been active on the unit , engaging with peers, attending unit activities and groups. Pt. encouraged to use strategies learned to improve coping skills and effectiveness. Pt. has been working with discharge planning process for success at discharge. Pt. to followup with PCP upon discharge, schedule and attend therapy and medication management appointments. Pt. to attend wellness program [place] base as needed. Pt. encouraged to seek alcohol sobriety support as needed. 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 Pt. is pleasant and cooperative, well kempt, of normal weight with steady gait. Pt. is able to ambulate without assistance. Speech: Is of normal rate and volume. Pt. is articulate, coherent and spontaneous. Language skills are intact. Thought processes including: Clear and goal-directed. Thought content: rational, logical. Abstract reasoning, and computation: Adequate. Description of associations: intact. Description of abnormal or psychotic thoughts: Pt. denies hallucinations, delusions, paranoia, preoccupations, homicidal or suicidal ideation, obsessions or compulsions. Pt. admits to drinking too much which affected his ability to make good choices on the night he was admitted. Judgment: Improved. Insight: Fair. Orientation to: Time, place, person and situation. Recent and remote memory: "Good". Attention span and concentration: Good. Fund of knowledge: Adequate. Mood: "I'm ready to go". 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 Rational, restricted. Affect: Appropriate , restricted. MEDICATIONS ON DISCHARGE: Gabapentin 300 mg tid for mood, trazodone 50 mg po qhs prn for insomnia, may repeat dose x 1, Prazosin 4 mg po qhs for night terrors/nightmares, hydroxyzine hydrochloride 50 mg po q 6 h prn for anxiety/ agitation, bupropion xl 150 mg po q am for depression/anxiety. PLAN/FOLLOWUP ARRANGEMENTS: Pt. to continue gabapentin 300 mg tid for mood, trazodone 50 mg po qhs prn for insomnia, may repeat dose x 1, Increase Prazosin from 2 mg to 4 mg po qhs for night terrors/nightmares, hydroxyzine hydrochloride 50 mg po q 6 h prn for anxiety/agitation, bupropion xl 150 mg po q am for depression/anxiety. Pt. [place], therapy and medication management. Pt. to follow up with PCP as needed The amount of time spent in the coordination of care for this patient was approximately 25 minutes. Vital Signs Vital Sign - Last 24 Hours 10/09/16 10/09/16 10/09/16 10/10/16 12:11 18:00 20:17 06:48 Temp 97.6 97.0 95.7 Pulse 98 88 70 Resp 16 16 16 B/P 131/85 158/93 137/93 122/68 10/10/16 08:03 B/P 122/68 Medications Scheduled Bupropion HCl (Wellbutrin Xl) 150 Mg Tab #7 150 MG PO DAILY DEPRESSION/ANXIETY Gabapentin (Gabapentin) 300 Mg Cap #21 300 MG PO TID MOOD Lisinopril (Lisinopril) 20 Mg Tab 20 MG PO DAILY . (Reported) Prazosin Hcl (Prazosin HCl) 2 Mg Cap #14 2 MG PO QHS NIGHT TERRORS/NIGHTMARES Pt. to use 2 caps po q hs Scheduled PRN Hydroxyzine HCl (Hydroxyzine HCl) 50 Mg Tab #20 50 MG PO Q6HP PRN PRN ANXIETY/ AGITATION Trazodone HCl (Trazodone HCl) 50 Mg Tab #10 50 MG PO QHSP PRN PRN INSOMNIA May repeat x 1 Zolmitriptan (Zomig Zmt) 5 Mg Tab 5 MG PO PRN PRN PRN MIGRAINE (Reported) Allergies Coded Allergies: No Known Allergies (Unverified , 10/04/16) CLARI VIRGEN NP Oct 10, 2016 12:04
--- NOTE | 2016-10-14 11:19 | EDDOCDS ---
Physician Documentation [facility] Name: Ruel Estrada Age: 36 yrs Sex: Male : 1980 Arrival Date: 10/03/2016 Time: 22:08 Bed OBSERVATION Private MD: Isaac Delaney [facility] Disposition: 10/04/16 13:28 Hospitalization ordered by Omid Leon for Inpatient Admission. Preliminary diagnosis is Major depressive disorder, recurrent, moderate. - Bed requested for Admit. - Status is Inpatient Admission. tmm1 - Condition is Stable. - Problem is an acute exacerbation. - Symptoms are unchanged. Historical: - Allergies: No known drug Allergies; - Home Meds: 1. lorazepam 0.5 mg Oral tab 1 tab 3 times per day pt took 2 at 18:30 and 2 at 19:30 2. prazosin 5 mg Oral cap 1 cap nightly 3. oxcarbazepine 150 mg oral tab 1 tab in moring and 1 tab at night 4. bupropion HCl 150 mg Oral TbER 1 tab once daily 5. trazodone 50 mg Oral tab nightly 6. lisinopril 20 mg Oral tab 1 tab once daily hasn't taken in a few weeks - PMHx: Hypertension; PTSD; Anxiety; Depression; - PSHx: none; - Social history: Smoking status: Patient states was never smoker of tobacco. Patient uses alcohol weekly. pt drank 2 40 oz beers tonight. No barriers to communication noted, The patient speaks fluent [place]. - Family history: Not pertinent. - : The pt / caregiver states he / she is not on anticoagulants. Home medication list is obtained from the patient. - Exposure Risk Screening:: None identified. Vital Signs: 10/03 22:25 BP 157 / 86 (auto/); sep 29: Pulse 127 MON; Pulse Ox 93% ; sep 22:36 BP 140 / 78; Pulse 133; Resp 20; Temp 92(O); Pulse Ox 92% on R/A; Weight 90.72 kg / 200 jmv lbs (R); Height 5 ft. 10 in. (177.80 cm) (R); Pain 6/10; 22:45 Pulse 123 MON; Pulse Ox 92% ; mlc 22:45 BP 109 / 50 (auto/); mlc 23:00 BP 116 / 56 (auto/); mlc 23:01 Pulse 122 MON; Pulse Ox 92% ; mlc 23:11 Temp 98.0(TE); 23:15 BP 142 / 75 (auto/); sep 23:16 Pulse 119 MON; Pulse Ox 91% ; sep 23:30 BP 121 / 61 (auto/); Resp 16; sep 23:31 Pulse 111 MON; Pulse Ox 96% on R/A; sep 23:32 Pulse 110 MON; mlc 10/04 06:21 BP 135 / 84; Pulse 95; Resp 18; Temp 96.9(TE); Pulse Ox 96% on R/A; Pain 0/10; rw1 12:29 BP 141 / 95; Pulse 108; Resp 18; Temp 98(O); Pulse Ox 99% on R/A; Pain 0/10; rs3 14:35 BP 140 / 92; Pulse 100; Resp 18; Temp 98(T); Pulse Ox 99% on R/A; Pain 0/10; rs3 10/03 22:36 Body Mass Index 28.70 (90.72 kg, 177.80 cm) julissa MDM: 10/03 22:13 Consult PFS/PSA/Marine Superintendent ordered. le 22:13 Consult PFS/PSA/Marine Superintendent: Patient's case requires discussion with on-call le Psychiatrist ordered. 22:13 PSA/PFS to call Nursing Interface Designer, to enter patient data on [place] Safe Act if patient le involuntarily admitted or transferred for SI or HI ordered. 22:13 Confirm accurate psychiatric medication list and times of last dosage ordered. le 22:13 Detain Pt Until Medically/PFS Cleared ordered. le 22:16 Acetaminophen Level Ordered. EDMS 22:16 Basic Metabolic Profile Ordered. EDMS 22:16 Complete Blood Count Ordered. EDMS 22:16 Drug Eval Toxicology ED Only Ordered. EDMS 22:16 Ethyl Alcohol (ethanol) Ordered. EDMS 22:16 Liver Profile Ordered. EDMS 22:16 Salicylate Level Ordered. EDMS 22:16 Thyroid Stimulating Hormone Ordered. EDMS 23:21 Drug Eval Toxicology ED Only Reviewed. le 23:21 Complete Blood Count Reviewed. le 23:25 Ethyl Alcohol (ethanol) Reviewed. le 23:26 Acetaminophen Level Reviewed. le 23:26 Basic Metabolic Profile Reviewed. le 23:26 Salicylate Level Reviewed. le 23:26 Thyroid Stimulating Hormone Reviewed. le 23:26 Liver Profile Reviewed. le 23:35 The patient has been medically cleared for psychiatric evaluation, admission and/or le transfer. 23:38 Financial registration complete. [email or web address] 23:39 [facility] Payment Agreement was scanned into [employer] and attached to record. [email or web address] 10/04 03:53 REGULAR DIET PLASTIC GIBBONS+DIET ordered. EDMS 05:55 Consult PFS/PSA/Marine Superintendent complete. jfb 05:55 Consult PFS/PSA/Marine Superintendent: Patient's case requires discussion with on-call jfb Psychiatrist complete. 05:55 PSA/PFS to call Nursing Interface Designer, to enter patient data on [place] Safe Act if patient jfb involuntarily admitted or transferred for SI or HI complete. 11:30 REGULAR DIET PLASTIC GIBBONS+DIET ordered. EDMS 13:11 PCR was scanned into [employer] and attached to record. gb 13:38 Admit to [facility]: ordered. EDMS 13:58 [facility] Legal paperwork was scanned into [employer] and attached to record. 10/05 09:13 T-Sheet-- Draft Copy was scanned into [employer] and attached to record. [facility] Signatures: Dispatcher [employer] EDOR Sharri Gilliland MD MD sd1 Jericho Alanis, PSA PSA cs Florecita Appiah, Reg Reg gb Danika Rothman, RIPRAP PLACING SUPERVISOR RIPRAP PLACING SUPERVISOR Lorrie Rosen, PSA PSA jfb Ayesha Nava, TRIM LINE WORKER TRIM LINE WORKER tmm1 Amy Quigley,RN RN Devi Gee, Reg Reg [email or web address] Sharri Jones [facility] The chart was reviewed and I authenticate all verbal orders and agree with the evaluation and treatment provided.Attachments: 10/03 23:39 [facility] Payment Agreement [email or web address] Chart Complete MTDD
--- NOTE | 2016-10-14 11:19 | EDDOCDS ---
Nurse's Notes [facility] Name: Ruel Estrada Age: 36 yrs Sex: Male : 1980 Arrival Date: 10/03/2016 Time: 22:08 Bed OBSERVATION Private MD: Isaac Delaney [facility] Diagnosis: Major depressive disorder, recurrent, moderate Presentation: 10/03 22:11 Presenting complaint: EMS states: pt took 4x 0.5mg of lorazepam, drank 2x 40 oz beers. [facility] [place] told his he did this "to a peaceful ", therefore called EMS. pt denies SI at this time. Mental Health Triage Level: Level 2: The patient displays active suicidal ideations. Adult Sepsis Screening: The patient does not have new or worsening altered mentation. Patient's respiratory rate is less than 22. Systolic blood pressure is greater than 100. Patient has a qSOFA score of 0- Negative Sepsis Screen. Suicide/Homicide risk assessment- Patient denies SI and HI but presents with another emotional, behavioral or other mental health complaint. 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 Transition of care: patient was not received from another setting of care. 22:11 Acuity: VU Level 3 [facility] [place]:11 Method Of Arrival: Ambulance [facility] Triage Assessment: 22:19 General: Appears in no apparent distress, comfortable, Behavior is cooperative. Pain: mlc Location: low back area Pain currently is 6 out of 10 on a pain scale. Pt Declines HIV testing. The patient is triaged at the bedside. See Assessment in Nurses Notes section of ED record. Neurological: Level of Consciousness is awake, obeys commands, Oriented to person, place. Respiratory: Airway is patent Respiratory effort is even, unlabored, Respiratory pattern is regular. Derm: Skin is pink, warm & dry. Historical: - Allergies: No known drug Allergies; - Home Meds: 1. lorazepam 0.5 mg Oral tab 1 tab 3 times per day pt took 2 at 18:30 and 2 at 19:30 2. prazosin 5 mg Oral cap 1 cap nightly 3. oxcarbazepine 150 mg oral tab 1 tab in moring and 1 tab at night 4. bupropion HCl 150 mg Oral TbER 1 tab once daily 5. trazodone 50 mg Oral tab nightly 6. lisinopril 20 mg Oral tab 1 tab once daily hasn't taken in a few weeks - PMHx: Hypertension; PTSD; Anxiety; Depression; - PSHx: none; - Social history: Smoking status: Patient states was never smoker of tobacco. Patient uses alcohol weekly. pt drank 2 40 oz beers tonight. No barriers to communication noted, The patient speaks fluent Canadian. - Family history: Not pertinent. - : The pt / caregiver states he / she is not on anticoagulants. Home medication list is obtained from the patient. - Exposure Risk Screening:: None identified. Screenin:21 Screening information is obtained from the patient. Fall risk: At risk due to apparent mlc chemical impairment. Assistance ADL's: requires no assistance with activities of daily living. Abuse/DV Screen: The patient / caregiver reports he/she is: not in a situation that causes fear, pain or injury. Nutritional screening: No deficits noted. Advance Directives: Currently, there is no health care proxy. home support is adequate. Assessment: 22:32 General: Appears in no apparent distress, comfortable, Behavior is cooperative. Pain: mlc Denies pain. Neurological: Level of Consciousness is awake, obeys commands, Oriented to person, place. Neurological: Moves all extremities. Speech is normal, Facial symmetry appears normal, Pupils are PERRLA. Cardiovascular: Capillary refill < 3 seconds Heart tones S1 S2 present Rhythm is sinus tachycardia No ectopy. Respiratory: Airway is patent Respiratory effort is even, unlabored, Respiratory pattern is regular, Breath sounds are clear bilaterally. GI: Abdomen is non- distended Bowel sounds present X 4 quads. Abd is soft X 4 quads. Derm: Skin is normal. 23:08 Reassessment: Patient appears in no apparent distress at this time. pt resting with mlc eyes closed. . 23:35 Reassessment: Patient appears in no apparent distress at this time. pt resting mlc comfortably with eyes closed, pt awakens easily. pt moved to [facility] via wheelchair. . 10/04 00:48 General: Appears in no apparent distress, comfortable, to be sleeping. Respiratory: mlc Airway is patent Respiratory effort is even, unlabored, Respiratory pattern is regular. 01:53 Reassessment: Patient appears in no apparent distress at this time. resting quietly on rw1 stretcher, safety maintained will monitor.. 02:50 Reassessment: Patient appears in no apparent distress at this time. resting quietly on rw1 stretcher, safety maintained will monitor.. 03:52 General: Appears in no apparent distress, comfortable, Behavior is quiet, resting on rw1 stretcher with eyes closed, safety maintained. Respiratory: Airway is patent Respiratory effort is even, unlabored. Derm: Skin is pink, warm & dry. normal. 04:51 General: Appears in no apparent distress, comfortable, to be sleeping. Respiratory: mlc Airway is patent Respiratory effort is even, unlabored, Respiratory pattern is regular. 05:43 Reassessment: Patient appears in no apparent distress at this time. resting on rw1 stretcher with eyes closed, safety maintained will monitor. 06:21 General: Appears in no apparent distress, comfortable, Behavior is appropriate for age, rw1 cooperative, quiet. Pain: Denies pain. Neurological: Level of Consciousness is awake, obeys commands, Oriented to person, place, time. Respiratory: Airway is patent Respiratory effort is even, unlabored. Derm: Skin is pink, warm & dry. normal. 07:07 General: Appears in no apparent distress, Behavior is appropriate for age, cooperative. ml6 Pain: Denies pain. Neurological: No deficits noted. Level of Consciousness is awake, alert. Cardiovascular: No deficits noted. Capillary refill < 3 seconds is brisk in bilateral fingers toes. Respiratory: No deficits noted. Airway is patent Respiratory effort is even, unlabored, Respiratory pattern is regular, symmetrical. GI: No deficits noted. 07:07 General: no report received first contact with patient. ml6 08:00 Reassessment: Patient appears in no apparent distress at this time. Patient denies pain ml6 at this time. Patient states feeling better. Patient states symptoms have improved. patient sleeping intermittently after eating breakfast. 09:01 Reassessment: Patient appears in no apparent distress at this time. Patient denies pain ml6 at this time. Patient states feeling better. Patient states symptoms have improved. patient sleeping soundly resp unlabored VSS. 10:00 General: Appears in no apparent distress, comfortable, Behavior is appropriate for age, ml6 cooperative. Pain: Denies pain. Cardiovascular: No deficits noted. Respiratory: No deficits noted. 11:00 Reassessment: Patient appears in no apparent distress at this time. Patient denies pain ml6 at this time. Patient states feeling better. Patient states symptoms have improved. patient sleeping soundly resp unlabored. 12:27 General: Appears in no apparent distress, Behavior is appropriate for age, cooperative, rs3 resting on stretcher. not happy about being here and getting admitted to [facility]. cooperative with care. vital signs stable. . 13:26 General: Appears in no apparent distress, Behavior is cooperative, eating lunch. denies rs3 of pain/distress. cooperative with care. 14:35 Reassessment: Patient appears in no apparent distress at this time. Patient denies pain rs3 at this time. Patient states feeling better. Patient states symptoms have improved. Mental Health Eval: 03:54 Narrative: Spoke with PT's who states PT told her yesterday that he has stopped jfb all of his medications about 10 days ago because he is sick of taking them. states she had noticed PT becoming short tempered and blowing up over things that normally would not bother him. 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 decided to take their three children to the wrestling match without PT and when they returned he appeared fine. After went to bed PT came into their room and was slurring his words so badly that had difficulty understanding him. He told her "I took all my pills" grabbed her phone and asked him to repeat himself telling him she would call for help and he stated "Just let me . I want to peacefully". does not feel unsafe with PT but she is concerned for his well being. 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 [facility] Behavioral Health: The patient is not an established patient of [facility] Behavioral Health. Referral Information: Evaluation referral is generated by called EMS for assistance. The patient was referred for evaluation because PT was making suicidal statements and was under the influence. 06:02 Subjective: The patients chief complaint is PT states that yesterday he and his an jfb argument with his and then he left the house to calm. When he came back gave him the silent treatment and then she left with the children. While she was gone he admitted to drinking but denied drug use. When returned PT states things were fine and he went to bed and the next thing he remembers is the police surrounding him. PT states he does not remember making statements he wanted to but he also did not deny he may have said it. PT is currently in the [facility] and is finishing his MEB which he says he is happy about. PT has minimized events and his mood swings based on 's report but admits that he discontinued his meds about 10 days ago and states he felt better but his stated she and the kids noticed a negative difference. 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 . Delusions are denied. Patient's mood is depressed, Hallucinations are denied. Mental Health history: anxiety, depression, post-traumatic stress disorder, sleep disturbance, suicide gesture by OD while drinking PT states he has no memory of event Mental Health Admissions: None. Current Outpatient Mental Health Services: Psychiatrist / Agency: Dr. Crane via [facility]. Therapist / Agency: Waldo Prather via [facility]. Current living environment is The patient currently lives with his / her significant other, and their 3 children. Patient presents to Emergency Department with the following symptoms within the past 2 weeks: alcohol abuse, depressed mood, poor impulse control, posttraumatic stress related to experiences, sleep disturbance - erratic suicidal ideation with. Substance abuse: PT states that he rarely drinks but did yesterday due to arguing with his . PT denies any drug abuse or that he smokes cigarettes . Mental status exam: Patients appearance is appropriate, Patient's behavior is cooperative, Speech is normal. Affect is flat. Mood is appropriate. Hallucinations are denied. Appetite is erratic Memory is good. Energy level is normal. Content of thought is depressive. pessimistic outlook for his future Thought process is intact. Cognitive level is oriented to person, place, time and situation Patient's insight is fair. Judgement is fair. Rapport with interviewer is good. Suicidal Ideation is denied. Homicidal ideation is denied. Disposition: Medically cleared for disposition by Stoney Marquis DO Psychiatric Consult is performed by phone with Dr Omid Leon MD. [facility] Admission Criteria: The patient is experiencing suicidal ideation. The patient requires continuous observation and/or control to protect self, others or property. The patient's care requires a multi-modal treatment plan under close supervision and coordination due to the complexity and severity of the patient's symptoms. The patient requires administration and monitoring of psychoactive medications by skilled medical providers due to the side effects of the psychoactive medications or significant dosage adjustments. [place] Safe Act: [place] Safe Act is applicable to this patient. The patient poses a risk to self or other and the Nursing Team Automobile Assembler has been notified. He/She will enter the patient's data. DSM-V Differential Diagnosis: Posttraumatic Stress Disorder (F 43.10). Insurance Pre-Certification: Not Required, . 13:43 Legal Status: Patient's legal status will be Emergency admission: . DSM-V rb Differential Diagnosis: Unspecified Depressive Disorder (F32.9). Awaiting: transfer to [facility]. 14:01 Narrative: Pt legals placed with belongings. rb Vital Signs: 10/03 22:25 BP 157 / 86 (auto/); sep 29: Pulse 127 MON; Pulse Ox 93% ; sep 22:36 BP 140 / 78; Pulse 133; Resp 20; Temp 92(O); Pulse Ox 92% on R/A; Weight 90.72 kg (R); jmv Height 5 ft. 10 in. (177.80 cm) (R); Pain 6/10; 22:45 Pulse 123 MON; Pulse Ox 92% ; mlc 22:45 BP 109 / 50 (auto/); mlc 23:00 BP 116 / 56 (auto/); [facility] 23:01 Pulse 122 MON; Pulse Ox 92% ; [facility] 23:11 Temp 98.0(TE); [facility] 23:15 BP 142 / 75 (auto/); sep 23:16 Pulse 119 MON; Pulse Ox 91% ; sep 23:30 BP 121 / 61 (auto/); Resp 16; sep 23:31 Pulse 111 MON; Pulse Ox 96% on R/A; sep 30:32 Pulse 110 MON; mlc 10/04 06:21 BP 135 / 84; Pulse 95; Resp 18; Temp 96.9(TE); Pulse Ox 96% on R/A; Pain 0/10; rw1 12:29 BP 141 / 95; Pulse 108; Resp 18; Temp 98(O); Pulse Ox 99% on R/A; Pain 0/10; rs3 14:35 BP 140 / 92; Pulse 100; Resp 18; Temp 98(T); Pulse Ox 99% on R/A; Pain 0/10; rs3 10/03 22:36 Body Mass Index 28.70 (90.72 kg, 177.80 cm) [facility] Vitals: 10/03 22:19 Log In Time N/A - ambulance arrival. [facility] ED Course: 22:09 Patient visited by Jerrica Hinton, Marketing Research Coordinator. ml3 22:09 Patient moved to [facility] ml3 22:10 Isaac Delaney [facility] is Private Physician. ml3 22:10 Amy Quigley,RN is Primary Nurse. ml3 22:10 Patient moved to ml3 22:12 [facility] le 22:14 Triage Initiated mlc 22:22 The patient / caregiver is instructed regarding the plan of care and ED course. mlc 22:24 Patient visited by Danika Rothman FNP. le 22:24 Patient visited by Danika Rothman FNP. le 22:31 Acetaminophen Level Sent. mlc 22:31 Basic Metabolic Profile Sent. mlc 22:31 Complete Blood Count Sent. mlc 22:31 Ethyl Alcohol (ethanol) Sent. mlc 22:31 Liver Profile Sent. mlc 22:32 Salicylate Level Sent. mlc 22:32 Thyroid Stimulating Hormone Sent. mlc 22:32 Maintain field IV. Dressing intact. Good blood return noted. Site clean & dry. Gauge & mlc site: 18g left AC. 22:34 Patient visited by Amy Quigley RN. mlc 22:36 Drug Eval Toxicology ED Only Sent. [facility] 22:38 Patient visited by Humphrey Drummond PCA. [facility] 22:38 Pt greeted and oriented to ED. Patient advised of names of staff involved in care, [facility] location of call zayas, wait times and NPO status. Patient has correct armband on for positive identification. Placed in gown. Placed in psych safe attire. Bed in low position. Call light in reach. Side rails up X2. patient monitor on. Pulse ox on. NIBP on. 23:09 Patient visited by Amy Quigley,ELVIRA. mlc 23:37 Patient moved to [place] [id number] 23:39 [facility] Payment Agreement was scanned into Access [employer] and attached to record. ks16 23:44 Patient visited by Armen Simpson. tr 23:47 Patient name changed from Ruel\\S\\\\S\\Risinger\\S\\ to Ruel\\S\\ \\S\\Risinger. EDMS 23:57 Patient visited by Armen Simpson. tr 10/04 00:03 Patient visited by Amy Quigley RN. mlc 00:15 Patient moved to OBSERVATION cs11 00:34 Patient visited by Armen Simpson. tr 00:48 Patient visited by Armen Simpson. tr 00:48 Patient visited by Amy Quigley RN. mlc 01:00 Patient visited by Armen Smipson. tr 01:17 Patient visited by Armen Simpson. tr 01:30 Patient visited by Armen Simpson. tr 01:54 Patient visited by Kvng Noriega LPN. rw1 01:58 Patient visited by SimpsonArmen. tr 02:16 Patient visited by SimpsonArmen. tr 02:42 Patient visited by SimpsonArmen. tr 02:56 Patient visited by SimpsonArmen. tr 03:18 Patient visited by SimpsonArmen. tr 03:49 Patient visited by SimpsonArmen. tr 04:01 Patient visited by SimpsonArmen. tr 04:14 Patient visited by SimpsonArmen. tr 04:28 Patient visited by SimpsonArmen. tr 04:42 Patient visited by SimpsonArmen. tr 04:51 Patient visited by Amy Quigley RN. mlc 05:29 Patient visited by SimpsonArmen. tr 05:49 Patient visited by SimpsonArmen. tr 06:00 Patient visited by SimpsonArmen. tr 06:13 Patient visited by SimpsonArmen. tr 06:30 Patient visited by SimpsonArmen. tr 06:43 Patient visited by SimpsonArmen. tr 06:58 Sharri Gilliland MD is Attending Physician. sd1 07:18 Primary Nurse role handed off by Amy Quigley RN kr3 07:20 Patient visited by Neeraj Dudley Security Aide. pjf 07:34 Patient visited by Neeraj Dudley Security Aidabiodun. pjf 07:59 Patient visited by Neeraj Dudley Security Aide. pjf 08:15 Psych Safety Check: Location: Psych Room. Visual Assessment: Cooperative. pjf 08:23 Patient visited by Neeraj Dudley Security Aide. pjf 08:31 Patient visited by Ayesha Nava HELICOPTER REPAIRER. tmm1 08:45 Psych Safety Check: Location: Psych Room. Visual Assessment: Cooperative. pjf 09:00 Psych Safety Check: Location: Psych Room. Visual Assessment: Cooperative. pjf 09:12 Patient visited by Ayesha Nava HELICOPTER REPAIRER. tmm1 09:43 Patient visited by Ayesha Nava HELICOPTER REPAIRER. tmm1 10:06 Patient visited by Ayesha Nava HELICOPTER REPAIRER. tmm1 10:13 Psych Safety Check: Location: Psych Room. Visual Assessment: Agitated, pt informed that tmm1 he is an admission, pt response agitation social work is aware, Isaac Delaney Liaison [facility] and [facility] S[facility]a informed and present. 10:15 Patient visited by Ayesha Nava PCA. tmm1 10:30 Psych Safety Check: Location: Psych Room. Visual Assessment: Cooperative. pjf 10:45 Psych Safety Check: Location: Psych Room. Visual Assessment: Cooperative. pjf 11:00 Psych Safety Check: Location: Psych Room. Visual Assessment: Cooperative. pjf 11:28 Patient visited by Ayesha Nava PCA. tmm1 11:44 Patient visited by Ayesha Nava PCA. tmm1 11:58 Patient visited by Neeraj Dudley Security Aide. pjf 12:15 Patient visited by Neeraj Dudley Security Aide. pjf 12:27 Patient visited by Giovanna Parker RN. rs3 12:30 Patient visited by Giovanna Parker RN. rs3 12:31 Patient visited by Neeraj Dudley Security Aide. pjf 12:48 Patient visited by Neeraj Dudley Security Aide. pjf 13:11 PCR was scanned into Access [employer] and attached to record. gb 13:24 Patient visited by Ayesha Nava PCA. tmm1 13:28 Omid Leon MD is Hospitalizing Provider. sd1 13:54 Patient visited by Ayesha Nava PCA. tmm1 13:58 [facility] Legal paperwork was scanned into Access [employer] and attached to record. cs 14:34 No IV's were initiated during this patient's visit. No procedures done that require rs3 assistance. 10/05 09:13 T-Sheet-- Draft Copy was scanned into Access [employer] and attached to record. [facility] Attachments: 13:58 E Legal paperwork cs Order Results: Lab Order: Acetaminophen Level; SPEC'M 10/03/16 22:29 Test: ACETAMINOPHEN LEVEL; Value: < 2.0; Range: 10.0-30.0; Abnormal: Below low normal; Units: UG/ML; Status: F Lab Order: Basic Metabolic Profile; SPEC'M 10/03/16 22:29 Test: GLUCOSE, FASTING; Value: 106; Range: 70-105; Abnormal: Above high normal; Units: MG/DL; Status: F Test: BLOOD UREA NITROGEN; Value: 14; Range: 7-18; Units: MG/DL; Status: F Test: CREATININE FOR GFR; Value: 1.02; Range: 0.70-1.30; Units: MG/DL; Status: F Test: GLOMERULAR FILTRATION RATE; Value: > 60.0; Range: >60; Status: F Test: SODIUM LEVEL; Value: 142; Range: 136-145; Units: MEQ/L; Status: F Test: POTASSIUM SERUM; Value: 3.2; Range: 3.5-5.1; Abnormal: Below low normal; Units: MEQ/L; Status: F Test: CHLORIDE LEVEL; Value: 107; Range: 98-107; Units: MEQ/L; Status: F Test: CARBON DIOXIDE LEVEL; Value: 24; Range: 21-32; Units: MEQ/L; Status: F Test: ANION GAP; Value: 11; Range: 8-16; Units: MEQ/L; Status: F Test: CALCIUM LEVEL; Value: 9.2; Range: 8.5-10.1; Units: MG/DL; Status: F Test Note: ; Units are mL/min/1.73 m2 Chronic Kidney Disease Staging per NKF: Stage I & II GFR >=60 Normal to Mildly Decreased Stage III GFR 30-59 Moderately Decreased Stage IV GFR 15-29 Severely Decreased Stage V GFR <15 Very Little GFR Left ESRD GFR <15 on ANESTHESIOLOGIST/PHYSICIAN Lab Order: Complete Blood Count; SPEC'M 10/03/16 22:29 Test: WHITE BLOOD COUNT; Value: 7.8; Range: 4.0-10.0; Units: K/mm3; Status: F Test: RED BLOOD COUNT; Value: 5.15; Range: 4.30-6.10; Units: M/mm3; Status: F Test: HEMOGLOBIN; Value: 16.1; Range: 14.0-18.0; Units: g/dl; Status: F Test: HEMATOCRIT; Value: 43.8; Range: 42.0-52.0; Units: %; Status: F Test: MEAN CORPUSCULAR VOLUME; Value: 85.0; Range: 80.0-96.0; Units: fl; Status: F Test: MEAN CORPUSCULAR HEMOGLOBIN; Value: 31.2; Range: 27.0-33.0; Units: pg; Status: F Test: MEAN CORPUSCULAR HGB CONC; Value: 36.7; Range: 32.0-36.5; Abnormal: Above high normal; Units: g/dl; Status: F Test: RED CELL DISTRIBUTION WIDTH; Value: 11.7; Range: 11.5-14.5; Units: %; Status: F Test: PLATELET COUNT, AUTOMATED; Value: 206; Range: 150-450; Units: k/mm3; Status: F Lab Order: Drug Eval Toxicology ED Only; SPEC'M 10/03/16 22:32 Test: AMPHETAMINES LEVEL URINE; Value: NEGATIVE; Range: NEGATIVE; Status: F Test: BARBITURATES URINE; Value: NEGATIVE; Range: NEGATIVE; Status: F Test: BENZODIAZEPINES URINE; Value: NEGATIVE; Range: NEGATIVE; Status: F Test: CANNABINOIDS URINE; Value: NEGATIVE; Range: NEGATIVE; Status: F Test: COCAINE METABOLITE URINE; Value: NEGATIVE; Range: NEGATIVE; Status: F Test: METHADONE URINE; Value: NEGATIVE; Range: NEGATIVE; Status: F Test: OPIATES URINE; Value: NEGATIVE; Range: NEGATIVE; Status: F Test: TRICYCLIC ANTIDEPRESS URINE; Value: NEGATIVE; Range: NEGATIVE; Status: F Test Note: ; ALL PRESUMPTIVE POSITIVE FINDINGS ARE UNCONFIRMED NORMAL VALUES THRESHOLD IN NG/ML AMPHETAMINES 1000 METHAMPHETAMINES 1000 BARBITURATES 300 BENZODIAZEPINES 300 CANNABINOIDS (THC) 50 COCAINE METABOLITE 300 METHADONE 300 OPIATES 300 PHENCYCLIDINE 25 TRICYCLIC ANTIDEPRESSANTS 1000 RESULTS ARE FOR MEDICAL PURPOSES ONLY. ALL URINE SPECIMENS WILL BE SAVED FOR 3 DAYS. IF CONFIRMATION OF A PRESUMPTIVE POSTIVE SCREEN RESULT IS DESIRED, CALL CHEMISTRY ([phone]) AND REQUEST URINE TO BE SENT TO REFERENCE LAB. FOR A LIST OF CLOSELY RELATED COMPOUNDS PLEASE CALL THE LAB. Lab Order: Ethyl Alcohol (ethanol); SPEC'M 10/03/16 22:29 Test: ETHYL ALCOHOL (ETHANOL); Value: 0.098; Range: 0.000-0.010; Abnormal: Above high normal; Units: %; Status: F Lab Order: Liver Profile; SPEC'M 10/03/16 22:29 Test: AST/SGOT; Value: 17; Range: 15-37; Units: U/L; Status: F Test: ALT/SGPT; Value: 38; Range: 12-78; Units: U/L; Status: F Test: ALKALINE PHOSPHATASE; Value: 50; Range: 45-117; Units: U/L; Status: F Test: BILIRUBIN,TOTAL; Value: 0.4; Range: 0.2-1.0; Units: MG/DL; Status: F Test: BILIRUBIN,DIRECT; Value: 0.1; Range: 0.0-0.2; Units: MG/DL; Status: F Test: TOTAL PROTEIN; Value: 7.5; Range: 6.4-8.2; Units: GM/DL; Status: F Test: ALBUMIN; Value: 4.1; Range: 3.2-5.2; Units: GM/DL; Status: F Test: ALBUMIN/GLOBULIN RATIO; Value: 1.21; Range: 1.00-1.93; Status: F Lab Order: Salicylate Level; SPEC'M 10/03/16 22:29 Test: SALICYLATE LEVEL; Value: < 1.7; Range: 5.0-30.0; Abnormal: Below low normal; Units: MG/DL; Status: F Lab Order: Thyroid Stimulating Hormone; SPEC'M 10/03/16 22:29 Test: THYROID STIMULATING HORMONE; Value: 5.330; Range: 0.358-3.740; Abnormal: Above high normal; Units: uIU/ML; Status: F Outcome: 10/04 13:28 Decision to Hospitalize by Provider. sd1 14:35 Discharge Assessment: patient administered narcotics - no. The following High Risk rs3 Discharge criteria are identified: None. Admitted to Psych accompanied by tech, via wheelchair, with chart. Condition: stable. No special radiology studies were completed. Property :Personal belongings accompany Pt. 14:40 Patient left the ED. tmm1 Signatures: Dispatcher [employer] EDMS Sharri Gilliland MD MD sd1 Megan Coronado RN RN catrina Palencia, Lyric, PSA PSA rb Zeke, Jericho, PSA PSA cs Florecita Appiah, Reg Reg gb Edgarwendimanny, Neeraj, Security Aide [facility] Simpson, Armen tr Jamaal, Jerrica, Marketing Research Coordinator Unit ml3 Thao Camacho,RN RN kr3 Kvng Noriega,FURNITURE ASSEMBLER FURNITURE ASSEMBLER rw1 Daniak Rothman, PROGRAMMER DEVELOPER PROGRAMMER DEVELOPER Giovanna GraceRN RN rs3 Deondre Mckeon, RN RN ml6 Edison, Lorrie, PSA PSA jfb Stoney Marquis, DO DO cs11 McLear, Ayesha, HELICOPTER REPAIRER HELICOPTER REPAIRER tmm1 Amy Quigley,RN RN Devi Gee, Reg Reg ks16 Robert, Sharri Drummond, Humphrey, HELICOPTER REPAIRER HELICOPTER REPAIRER jmv Chart Complete MTDD
--- NOTE | 2016-10-14 11:19 | EDDOCDS ---
Physician Documentation [facility] Name: Ruel Estrada Age: 36 yrs Sex: Male : 1980 Arrival Date: 10/03/2016 Time: 22:08 Bed OBSERVATION Private MD: Isaac Delaney [facility] Disposition: 10/04/16 13:28 Hospitalization ordered by Omid Leon for Inpatient Admission. Preliminary diagnosis is Major depressive disorder, recurrent, moderate. - Bed requested for Admit. - Status is Inpatient Admission. tmm1 - Condition is Stable. - Problem is an acute exacerbation. - Symptoms are unchanged. Historical: - Allergies: No known drug Allergies; - Home Meds: 1. lorazepam 0.5 mg Oral tab 1 tab 3 times per day pt took 2 at 18:30 and 2 at 19:30 2. prazosin 5 mg Oral cap 1 cap nightly 3. oxcarbazepine 150 mg oral tab 1 tab in moring and 1 tab at night 4. bupropion HCl 150 mg Oral TbER 1 tab once daily 5. trazodone 50 mg Oral tab nightly 6. lisinopril 20 mg Oral tab 1 tab once daily hasn't taken in a few weeks - PMHx: Hypertension; PTSD; Anxiety; Depression; - PSHx: none; - Social history: Smoking status: Patient states was never smoker of tobacco. Patient uses alcohol weekly. pt drank 2 40 oz beers tonight. No barriers to communication noted, The patient speaks fluent Canadian. - Family history: Not pertinent. - : The pt / caregiver states he / she is not on anticoagulants. Home medication list is obtained from the patient. - Exposure Risk Screening:: None identified. Vital Signs: 10/03 22:25 BP 157 / 86 (auto/); sep 29: Pulse 127 MON; Pulse Ox 93% ; sep 22:36 BP 140 / 78; Pulse 133; Resp 20; Temp 92(O); Pulse Ox 92% on R/A; Weight 90.72 kg / 200 jmv lbs (R); Height 5 ft. 10 in. (177.80 cm) (R); Pain 6/10; 22:45 Pulse 123 MON; Pulse Ox 92% ; mlc 22:45 BP 109 / 50 (auto/); mlc 23:00 BP 116 / 56 (auto/); mlc 23:01 Pulse 122 MON; Pulse Ox 92% ; mlc 23:11 Temp 98.0(TE); 23:15 BP 142 / 75 (auto/); sep 23:16 Pulse 119 MON; Pulse Ox 91% ; sep 23:30 BP 121 / 61 (auto/); Resp 16; sep 23:31 Pulse 111 MON; Pulse Ox 96% on R/A; sep 23:32 Pulse 110 MON; mlc 10/04 06:21 BP 135 / 84; Pulse 95; Resp 18; Temp 96.9(TE); Pulse Ox 96% on R/A; Pain 0/10; rw1 12:29 BP 141 / 95; Pulse 108; Resp 18; Temp 98(O); Pulse Ox 99% on R/A; Pain 0/10; rs3 14:35 BP 140 / 92; Pulse 100; Resp 18; Temp 98(T); Pulse Ox 99% on R/A; Pain 0/10; rs3 10/03 22:36 Body Mass Index 28.70 (90.72 kg, 177.80 cm) julissa MDM: 10/03 22:13 Consult PFS/PSA/Print Traffic Manager ordered. le 22:13 Consult PFS/PSA/Print Traffic Manager: Patient's case requires discussion with on-call le Psychiatrist ordered. 22:13 PSA/PFS to call Nursing Garage Hand, to enter patient data on [place] Safe Act if patient le involuntarily admitted or transferred for SI or HI ordered. 22:13 Confirm accurate psychiatric medication list and times of last dosage ordered. le 22:13 Detain Pt Until Medically/PFS Cleared ordered. le 22:16 Acetaminophen Level Ordered. EDMS 22:16 Basic Metabolic Profile Ordered. EDMS 22:16 Complete Blood Count Ordered. EDMS 22:16 Drug Eval Toxicology ED Only Ordered. EDMS 22:16 Ethyl Alcohol (ethanol) Ordered. EDMS 22:16 Liver Profile Ordered. EDMS 22:16 Salicylate Level Ordered. EDMS 22:16 Thyroid Stimulating Hormone Ordered. EDMS 23:21 Drug Eval Toxicology ED Only Reviewed. le 23:21 Complete Blood Count Reviewed. le 23:25 Ethyl Alcohol (ethanol) Reviewed. le 23:26 Acetaminophen Level Reviewed. le 23:26 Basic Metabolic Profile Reviewed. le 23:26 Salicylate Level Reviewed. le 23:26 Thyroid Stimulating Hormone Reviewed. le 23:26 Liver Profile Reviewed. le 23:35 The patient has been medically cleared for psychiatric evaluation, admission and/or le transfer. 23:38 Financial registration complete. [email or web address] 23:39 [facility] Payment Agreement was scanned into [employer] and attached to record. [email or web address] 10/04 03:53 REGULAR DIET PLASTIC GIBBONS+DIET ordered. EDMS 05:55 Consult PFS/PSA/Print Traffic Manager complete. jfb 05:55 Consult PFS/PSA/Print Traffic Manager: Patient's case requires discussion with on-call jfb Psychiatrist complete. 05:55 PSA/PFS to call Nursing Garage Hand, to enter patient data on [place] Safe Act if patient jfb involuntarily admitted or transferred for SI or HI complete. 11:30 REGULAR DIET PLASTIC GIBBONS+DIET ordered. EDMS 13:11 PCR was scanned into [employer] and attached to record. gb 13:38 Admit to IM[facility]: ordered. EDMS 13:58 [facility] Legal paperwork was scanned into [employer] and attached to record. 10/05 09:13 T-Sheet-- Draft Copy was scanned into [employer] and attached to record. [email or web address] Signatures: Dispatcher [employer] EDRI Sharri Gilliland MD MD sd1 Jericho Alanis, PSA PSA cs Florecita Appiah, Reg Reg gb Danika Rothman, AVIONICS SUPERVISOR AVIONICS SUPERVISOR Lorrie Rosen, PSA PSA jfb Ayesha Nava, AUTO BODY SERVICE MECHANIC AUTO BODY SERVICE MECHANIC tmm1 Amy Quigley,RN RN Devi Gee, Reg Reg ks16 Sharri Jones [facility] The chart was reviewed and I authenticate all verbal orders and agree with the evaluation and treatment provided.Attachments: 10/03 23:39 [facility] Payment Agreement [email or web address] Chart Complete MTDD
== END 2016-10-10 10:35 | disposition home or self-care (01) | DRG 885 ==
LOC: M ED 22:08 → M PSY 10-04 14:48
PROVIDERS: ADMIT Psychiatry & Neurology Psychiatry; ATTEND Psychiatry & Neurology Psychiatry
DX: F33.9 Major depressive disorder, recurrent, unspecified (principal); Z79.899 Other long term (current) drug therapy; F43.10 Post-traumatic stress disorder, unspecified; I10 Essential (primary) hypertension

== ENCOUNTER 2017-03-01 16:20 | Emergency (ER) | payer OTHER ==
[~2017-03-01] VITALS: Ht 177.8 cm; Wt 94.5 kg
[~2017-03-01 16:20] MED LIST: BUPR150T3 PO; GABA-282 PO; HYDRO50TAB PO; LISI-538 PO; LORA0.5T11 PO; OXCA150T PO; PRAZ2CAP PO; PRAZ5CAP PO; TRAZO50TA PO; WELLTAB38 PO; ZOMI5TAB2 PO
[2017-03-01] MEDS ORDERED: PRAZ5CAP PO (16:26)
[2017-03-01] MEDS ORDERED: methylPREDNISolone INJ 125 MG/2 ML VIAL (J2930) IM ONE (17:00)
[2017-03-01] MEDS ORDERED: KETOROLAC 60 MG/2 ML VIAL (J1885) IM ONE (17:00)
--- NOTE | 2017-03-01 17:30 | REPUSA ---
CT of the lumbar spine without contrast Clinical history: Pain. Technique: Multiple axial CT images were obtained through the lumbar spine without administration of contrast. Coronal and sagittal 3-D reconstructed images were also obtained. Findings: The lumbar vertebral bodies are in satisfactory positioning and alignment. No fractures or dislocatio ns are demonstrated. Intervertebral disc spaces are well-maintained. There is no evidence of facet mcbride bluxation. The neural foramen appear grossly patent. The spinal canal demonstrates normal caliber and contour without evidence of spinal stenosis. The surrounding soft tissues are within normal limits. Impression: Unremarkable CT examination of the lumbar spine.
[2017-03-01] MEDS ORDERED: NAPR500T PO (17:52)
[2017-03-01] MEDS ORDERED: CYCL10TA PO (17:52)
[2017-03-01] MEDS ORDERED: HYDR-3713 PO (17:52)
[2017-03-01 17:54] VITALS: BP 129/84
== END 2017-03-01 18:01 | disposition home or self-care (01) ==
LOC: M ED 17:31
DX: M54.5 Low back pain (principal); G89.29 Other chronic pain; F17.200 Nicotine dependence, unspecified, uncomplicated; Z79.899 Other long term (current) drug therapy
CPT/HCPCS: 72131; 96372; 99282; J1885; J2930